=== PATIENT | female | born 1960 | race Caucasian/White ===

== ENCOUNTER 2016-12-09 07:15 | Inpatient (IN) | payer MEDICARE, MEDICAID ==
[2016-12-09] MEDS ORDERED: Naloxone 0.4 MG/ML SDV IVPUSH PRN (07:54)
[2016-12-09] MEDS: HYDROmorphone/Normal Saline 15 MG/30 ML PCA IV PRN ×2 (07:58→22:41)
[2016-12-09] MEDS ORDERED: fentaNYL 25 MCG/HR Transdermal Patch TRDERM ONE (08:15)
[2016-12-09] MEDS ORDERED: fentaNYL 25 MCG/HR Transdermal Patch TRDERM SCH (08:15)
[2016-12-09] MEDS: Dextrose 5%-Lactated Ringers 1,000 ML IV SCH ×2 (08:54→13:37)
[2016-12-09] MEDS ORDERED: ceFAZolin 2 GM in Premix Bag 1 BAG IV ONE (09:45)
[2016-12-09] MEDS ORDERED: Neostigmine Methylsulfate 1 MG/ML 5 ML Syringe ONE (10:21)
[2016-12-09] MEDS ORDERED: fentaNYL 250 MCG/5 ML SDV ONE (10:21)
[2016-12-09] MEDS ORDERED: Ondansetron 4 MG/2 ML SDV ONE (10:21)
[2016-12-09] MEDS ORDERED: Midazolam 1 MG/ML 2 ML SDV ONE (10:21)
[2016-12-09] MEDS ORDERED: Propofol 200 MG/20 ML SDV ONE (10:21)
[2016-12-09] MEDS ORDERED: Dexamethasone 4 MG/ML SDV ONE (10:21)
[2016-12-09] MEDS ORDERED: Ketamine 500 MG/5 ML MDV IV SCH (11:00)
[2016-12-09] MEDS ORDERED: fentaNYL 100 MCG/2 ML SDV ONE (12:36)
[2016-12-09] MEDS ORDERED: Meperidine PF 100 MG/ML Syringe IM ONE (12:47)
[2016-12-09] MEDS ORDERED: hydrOXYzine HCl 50 MG/ML SDV IM ONE (12:48)
[2016-12-09] MEDS ORDERED: Cyclobenzaprine 10 MG Tab PO PRN (15:08)
[2016-12-09] MEDS ORDERED: LORazepam 0.5 MG Tab PO PRN (15:09)
[2016-12-09] MEDS ORDERED: Ondansetron 4 MG/2 ML SDV IV PRN (15:12)
[2016-12-09] MEDS ORDERED: Dextrose 5%-Lactated Ringers 1,000 ML IV SCH (15:15)
[2016-12-09] MEDS ORDERED: CHECK FENTANYL PATCH DAILY TOP SCH (16:00)
[2016-12-09] MEDS: DULoxetine 30 MG Cap PO SCH (16:40)
[2016-12-09] MEDS: Pantoprazole 40 MG Vial IV SCH (16:41)
[2016-12-09] MEDS: Lisinopril 10 MG Tab PO SCH (16:41)
[2016-12-09] MEDS: Metoclopramide 10 MG/2 ML SDV IVPUSH SCH (16:41)
[2016-12-09] MEDS: Venlafaxine 37.5 MG Cap.ER PO SCH (16:41)
[2016-12-09] MEDS: oxyCODONE ER 10 MG TAB.ER PO SCH (18:29)
[2016-12-09] MEDS: ceFAZolin 2 GM in Sodium Chloride 0.9% 50 ML IV SCH (18:30)
[2016-12-09] MEDS: traZODone 50 MG Tab PO SCH (20:42)
[2016-12-09] MEDS: oxyCODONE 5 MG Tab PO PRN (22:13)
[2016-12-10] MEDS: Metoclopramide 10 MG/2 ML SDV IVPUSH SCH ×3 (02:22→15:52)
[2016-12-10] MEDS: ceFAZolin 2 GM in Sodium Chloride 0.9% 50 ML IV SCH ×2 (02:22→12:08)
[2016-12-10] MEDS: oxyCODONE ER 10 MG TAB.ER PO SCH ×2 (06:32→18:17)
[2016-12-10] MEDS: oxyCODONE 5 MG Tab PO PRN ×2 (07:40→15:19)
[2016-12-10] MEDS: Pantoprazole 40 MG Vial IV SCH (07:41)
[2016-12-10] MEDS ORDERED: Zolpidem 5 MG Tab PO PRN ×2 (08:56)
[2016-12-10] MEDS: HYDROmorphone 2 MG Tab PO PRN ×2 (11:26→19:26)
[2016-12-10] MEDS: DULoxetine 30 MG Cap PO SCH (11:27)
[2016-12-10] MEDS: Venlafaxine 37.5 MG Cap.ER PO SCH (11:27)
[2016-12-10] MEDS: Lisinopril 10 MG Tab PO SCH (11:28)
[2016-12-10] MEDS: Furosemide 40 MG Tab PO SCH (11:28)
--- NOTE | 2016-12-10 17:55 | PN ---
DATE OF SERVICE: 12/10/2016 SUBJECTIVE: Abiola is postop day 1 following a laparoscopic Dean fundoplication. She has had a lot of pain in her left upper shoulder. She continues to be on ice chips. Vital signs have been stable, but she did have a temp of 99.5. She reports her pain on the pain scale of 1 to 10 as a 10+ out of 10. REVIEW OF SYSTEMS: Remainder of review of systems negative for any pertinent positives and negatives. OBJECTIVE: GENERAL: Abiola Yin is a 56-year-old female. She is expressing pain. VITAL SIGNS: Temperature is 99.5, pulse rate is 59, respirations are 16, and blood pressure 125/68. HEENT: Negative. NECK: Supple. HEART: Regular rate and rhythm. LUNGS: Clear. ABDOMEN: Dressings dry and intact. Abdominal binder is on. EXTREMITIES: Without peripheral edema. ASSESSMENT: Laparoscopic Dean fundoplication for gastroesophageal reflux disease refractory to medical management on 12/09/2016. PLAN: 1. Clear liquid diet for breakfast and lunch. 2. Full liquid diet for dinner. 3. Dilaudid 2 mg one to two every 4 hours p.r.n. pain. 4. Discontinue VICE PRESIDENT UNDERWRITING. 5. Continue continuous pulse ox. 6. Discontinue Hunt. 7. Discontinue Flexeril. 8. The patient requested Soma which works better for her back pain as far as muscle relaxant. She has can have Soma 350 mg p.o. t.i.d. Good pulmonary toilet encouraged. 9. We will evaluate p.r.n. or in a.m. Cari Pretty PA-C /[id number]
[2016-12-10] MEDS: Dextrose 5%-Lactated Ringers 1,000 ML IV SCH (19:28)
[2016-12-10] MEDS ORDERED: Acetaminophen 1,000 MG in Premix Bag 1 BAG IV ONE (20:08)
[2016-12-10] MEDS: traZODone 50 MG Tab PO SCH (21:22)
[2016-12-11] MEDS: Metoclopramide 10 MG/2 ML SDV IVPUSH SCH (00:15)
[2016-12-11] MEDS: oxyCODONE 5 MG Tab PO PRN ×4 (01:04→22:31)
[2016-12-11] MEDS: Acetaminophen 325 MG Tab PO SCH ×4 (01:52→20:43)
[2016-12-11] MEDS: oxyCODONE ER 10 MG TAB.ER PO SCH ×2 (05:35→18:50)
[2016-12-11] MEDS: Dextrose 5%-Lactated Ringers 1,000 ML IV SCH (06:22)
--- NOTE | 2016-12-11 07:46 | PN ---
DATE OF SERVICE: 12/11/2016 SUBJECTIVE: Abiola is postop, following a laparoscopic Dean fundoplication. She had better pain relief with IV Tylenol, temp max 99.9. Oral intake 1080. Denies any difficulty swallowing. The left shoulder pain is better. She is having a lot of difficulty with her chronic back pain. REVIEW OF SYSTEMS: Remainder of review of systems negative for any pertinent positives or negatives. OBJECTIVE: General: Abiola Yin is a 56-year-old female. VITAL SIGNS: TPR is 99.9, 73, 16, blood pressure 111/55. HEENT: Negative. NECK: Supple. HEART: Regular rate and rhythm. LUNGS: Clear. ABDOMEN: Dressings dry and intact. Abdominal binder is on. EXTREMITIES: Without peripheral edema. SCDs are on. ASSESSMENT: Laparoscopic Dean fundoplication for gastroesophageal reflux disease, refractory to medical management on 12/09/2016. PLAN: 1. Dressing off, may shower. Discontinue scheduled Reglan. Good pulmonary toilet encouraged. 2. We will evaluate p.r.n. or in a.m. Cari Pretty PA-C /[id number]
[2016-12-11] MEDS: HYDROmorphone 2 MG Tab PO PRN ×4 (07:57→20:42)
[2016-12-11] MEDS: Pantoprazole 40 MG Vial IV SCH (08:16)
[2016-12-11] MEDS: DULoxetine 30 MG Cap PO SCH (08:21)
[2016-12-11] MEDS: Venlafaxine 37.5 MG Cap.ER PO SCH (08:21)
[2016-12-11] MEDS: Lisinopril 10 MG Tab PO SCH (08:53)
[2016-12-11] MEDS: Furosemide 40 MG Tab PO SCH (08:53)
[2016-12-11] MEDS ORDERED: Ondansetron 4 MG Tab.DIS PO PRN (11:24)
[2016-12-11] MEDS ORDERED: oxyCODONE ER 10 MG TAB.ER ONE (18:45)
[2016-12-11] MEDS ORDERED: Zolpidem 5 MG Tab PO PRN (20:49)
[2016-12-11] MEDS: traZODone 50 MG Tab PO SCH (22:30)
[2016-12-12] MEDS: Acetaminophen 325 MG Tab PO SCH ×2 (02:54→07:23)
[2016-12-12] MEDS: HYDROmorphone 2 MG Tab PO PRN ×2 (02:54→07:30)
[2016-12-12] MEDS: oxyCODONE ER 10 MG TAB.ER PO SCH (06:51)
[2016-12-12] MEDS ORDERED: Pantoprazole 40 MG Tab.CR PO SCH (07:30)
[2016-12-12 07:47] VITALS: BP 134/66
[2016-12-12] MEDS: DULoxetine 30 MG Cap PO SCH (09:25)
[2016-12-12] MEDS: Venlafaxine 37.5 MG Cap.ER PO SCH (09:26)
[2016-12-12] MEDS: Lisinopril 10 MG Tab PO SCH (09:27)
[2016-12-12] MEDS: Furosemide 40 MG Tab PO SCH (09:27)
[2016-12-12] MEDS ORDERED: Magnesium Hydroxide 400 MG/5 ML Susp 30 ML Cup PO ONE (10:42)
--- NOTE | 2016-12-12 11:30 | DISCH ---
ADMISSION DIAGNOSES: 1. Hiatal hernia. 2. Chronic fatigue and pain syndrome. 3. Hypothyroidism. 4. History of drug and alcohol addiction. 5. Hypertension. 6. Hyperlipidemia. 7. Depression and anxiety. 8. Insomnia. 9. Gastroesophageal reflux disease. 10.Lumbago. 11.Fibromyalgia. 12.Osteoporosis. 13.Osteoarthritis. 14.Posttraumatic stress disorder. 15.Sleep apnea. 16.Irritable bowel syndrome. 17.Small cyst, right lobe of liver. DISCHARGE DIAGNOSES: 1. Laparoscopic Dean fundoplication with repair of paraesophageal diaphragmatic hernia with mesh and excision of mediastinal lipoma and resection of lateral aspect of the left lobe of liver for large paraesophageal diaphragmatic hernia, for gastroesophageal reflux disease refractory to medical management. 2. Nodular lesion left lobe of liver and mediastinal lipoma. HISTORY: Abiola Yin is a 56-year-old female with longstanding history of GERD, refractory to medical management and a large paraesophageal diaphragmatic hernia. After preoperative evaluation and discussion of possible risks and possible complications, she wished to proceed with surgical procedure. HOSPITAL COURSE: Abiola had her surgery on 12/09/2016. She had no operative complications. She did have extreme difficulty with management of pain. Once her pain got under control, she was able to ambulate and tolerate a clear then advance to full liquid diet. Her vital signs remained stable. Her activity was adequate. Oral intake was good at 1670. She was able to be discharged to home on 12/12/2016. PHYSICAL EXAMINATION: GENERAL: Abiola Yin is a 56-year-old female. VITAL SIGNS: Height is 5 feet 3 inches. Weight is 163 pounds. TPR is 98.1, 81, 16, blood pressure 134/66. HEENT: Negative. NECK: Supple. HEART: Regular rate and rhythm. LUNGS: Clear. ABDOMEN: Incisions look good. Abdominal binder is on. EXTREMITIES: Without peripheral edema. DISPOSITION: Discharged to home. CONDITION: Stable and improving. FOLLOWUP APPOINTMENT: Cari Pretty PA-C, on 12/18/2016 at 10:15 a.m. HOME MEDICATION: 1. Tylenol 650 mg oral q.6 hours p.r.n. pain. 2. Dilaudid 2 mg 1 to 2 every 4 hours p.r.n. pain. 3. #40 milk of magnesia 30 mL, two were sent home with patient. 4. She is to resume her home medications of vitamin D3 of 1000 international units daily. 5. Cymbalta 120 mg oral daily. 6. Dexilant 30 mg oral twice daily. 7. Furosemide 40 mg oral daily. 8. Ativan 0.5 mg oral 3 times a day p.r.n. anxiety. 9. Lisinopril 10 mg oral daily. 10.Effexor 37.5 mg oral daily. 11.Vitamin E 400 mg oral daily. 12.Ambien 15 mg oral at bedtime. 13.Oxycodone ER 10 mg every 12 hours. 14.Oxycodone 10 mg every 6 hours p.r.n. pain. 15.Trazodone 300 mg at bedtime. DIET: After discharge, full liquid diet for 2 weeks. ACTIVITY: After discharge, as tolerated. No lifting greater than 10 pounds for 2 weeks[address], do not drive on pain medication. Shower bathing, may shower. Notify provider if any fever, increased pain, swelling, redness, drainage, nausea, or vomiting. Keep wound incision clean and dry. Wear abdominal binder for 2 weeks and then as tolerated. SPECIAL INSTRUCTION: Use incentive spirometer 10 times every hour while awake for 2 weeks and to write down everything you eat and drink, and bring to clinic appointments.
--- NOTE | 2016-12-15 14:59 | OR ---
DATE OF PROCEDURE: 12/09/2016 PREOPERATIVE DIAGNOSIS: Gastroesophageal reflux disease refractory to medical management. POSTOPERATIVE DIAGNOSES: 1. Large paraesophageal diaphragmatic hernia associated with gastroesophageal reflux disease refractory to medical management. 2. Mediastinal lipoma. 3. Nodular lesion, left lobe of the liver. OPERATIVE PROCEDURES: Diagnostic laparoscopy with: 1. Laparoscopic Dean fundoplication with repair of paraesophageal diaphragmatic hernia with mesh (73793). 2. Excision of mediastinal lipoma (27872). 3. Resection of lateral aspect of the left lobe of liver (41471). ANESTHESIA: General. INDICATION FOR PROCEDURE: This is a 56-year-old female, presenting with gastroesophageal reflux disease which has become refractory to medical management and has proceeded with a Dean fundoplication. Potential risks including bleeding, infection, injury to underlying viscera, problems with fundoplication such as dysphagia, gas-bloat syndrome, disorders in gastric emptying rate, as well as possibility of incomplete relief of reflux symptoms as well as remote possibility of cardiopulmonary, septic, or hemorrhagic complications leading to were all discussed, and the patient wishes to proceed. DETAILS OF PROCEDURE: The patient was taken to the operating room and after general endotracheal anesthesia was induced, she was converted to a lithotomy position and a Hunt catheter was inserted and the abdomen was then prepped and draped. At 15 cm inferior, 5 cm left of xiphoid process, transverse incision was made, and peritoneal cavity entered under direct vision with an Optiview trocar and inflated to 15 mmHg pressure with CO2. Laparoscope was then reinserted. No underlying trocar insertion site injuries were seen. Following this, 4 additional trocars were placed across the upper and mid abdomen and general exploration was undertaken. The initial finding was that of a fairly large white nodular lesion in the left lobe of the liver, located more or less at the junction of segments II and III in the midportion of the lateral aspect of the left lobe of the liver. No other abnormalities were noted within the liver and it was felt that this would be best resected by means of a wide excision. Given the use of resection of this lesion and in the event that it's neoplastic, this would probably be an adequate excision without reexploration being required, and this would result in a minimal loss of liver function given its location. The decision was made to proceed with this at the end of the fundoplication phase of the procedure. At this point, the liver was retracted anteriorly and the patient was noted to have a fairly large paraesophageal diaphragmatic hernia with prolapse of a portion of gastric fundus as well as some omentum in the plane anterior to the course of the esophagus. This was reduced at this point, the peritoneum to the right and anterior to the left of the esophagogastric junction divided and reflected downward. As one dissected behind the esophagus, a mediastinal lipoma was encountered. This was sequentially dissected free from the surrounding soft tissues and then excised and sent as a separate specimen. The attachments to the distal esophagus were then sequentially freed up with the until adequate intraabdominal esophageal length of 4 to 5 cm was established. A crural repair was then accomplished posteriorly with some 0 Ethibond sutures reinforced with PTFE pledgets, the size of the crural defect appeared to warrant a mesh-type repair. Phasix mesh was then cut so that it laid across the crural repair posteriorly and then along the sides of the esophagus. This was fixed to the diaphragmatic tissues with titanium tacking screws. Beginning this in the mid greater curvature of the stomach, the omentum was divided away from the stomach with the short gastric vessels including the highest posterior short gastric vessels until the fundus was well mobilized. Fundus was then retrieved through retroesophageal window and at that point of the procedure passed the guidewire through the esophagus and into the stomach. Over this, a 54-Bulgarian Savary dilator was placed. A 2 cm three-stitch fundoplication was then accomplished with 0 Ethibond sutures reinforced with PTFE pledgets. Each of the fundoplication sutures included a bite of the underlying esophagus. The uppermost included a bite of the right side of the diaphragm that helped keep the fundoplication in a non-slipped position. An additional stitch between the left side of fundoplication overlying diaphragm with the same stitch- pledget combination was likewise accomplished. At that point, the dilator and guidewire were removed. The patient appeared to have adequate floppiness of the fundoplication. At this point, the liver retractor was reduced once again and using sequential firings of the BRUNILDA purple and alexander loads, the liver mounting to the lateral half of the segments II and III were excised and this specimen was then placed into a specimen bag and retrieved through the somewhat now dilated left lateral subcostal trocar site. Minimal bleeding from the excision site was closed with control of electrocautery. At that point, good hemostasis was noted. No bile leaks were seen. At this point, no further problems were noted. Trocars were removed. The peritoneal cavity deflated. The fascia at the lateral trocar site in the left side was closed using 0 Vicryl stitch and the skin at each incision was closed with 4-0 Vicryl skin stitch. Dressing was applied. The patient was taken to the recovery room in satisfactory condition. Raimundo Cooley MD /[id number]
== END 2016-12-12 10:30 | disposition home or self-care (01) | DRG 328 ==
LOC: EDSTATUS 07:15 → JP.SDSSCHI 07:40 → JP.SDS 07:40 → JP.2SS 14:00
PROVIDERS: ADMIT Surgery; ATTEND Surgery
PROC: 0WBC4ZX Excision of Mediastinum, Percutaneous Endoscopic Approach, Diagnostic (ICD-10-PCS; principal; 2016-12-09)
PROC: 0DV44ZZ Restriction of Esophagogastric Junction, Percutaneous Endoscopic Approach (ICD-10-PCS; principal; 2016-12-09)
PROC: 0FB24ZX Excision of Left Lobe Liver, Percutaneous Endoscopic Approach, Diagnostic (ICD-10-PCS; principal; 2016-12-09)
PROC: 0BUR4JZ (ICD-10-PCS; principal; 2016-12-09)
PROC: 0BUS4JZ (ICD-10-PCS; principal; 2016-12-09)
DX: K21.9 Gastro-esophageal reflux disease without esophagitis (principal); M54.5 Low back pain; M54.6 Pain in thoracic spine; G89.29 Other chronic pain; K44.9 Diaphragmatic hernia without obstruction or gangrene; I10 Essential (primary) hypertension; F32.9 Major depressive disorder, single episode, unspecified; F41.9 Anxiety disorder, unspecified; M79.7 Fibromyalgia; M19.90 Unspecified osteoarthritis, unspecified site; G47.30 Sleep apnea, unspecified; D17.4 Benign lipomatous neoplasm of intrathoracic organs; G47.00 Insomnia, unspecified; Z88.8 Allergy status to other drugs, medicaments and biological substances; K76.9 Liver disease, unspecified; F10.21 Alcohol dependence, in remission; F19.21 Other psychoactive substance dependence, in remission
CPT/HCPCS: 88304; 88307; 88312; 94667; 94762; A9270-GY; C1781; C9113; J0131; J0690; J1100; J1170; J2175; J2250; J2405; J2704; J2765; J3010; J3410; J7042; J7050

== ENCOUNTER 2016-12-29 16:43 | Emergency (ER) | payer MEDICARE, MEDICAID ==
[2016-12-29] MEDS ORDERED: Sodium Chloride 0.9% 10 ML Syringe FLUSH PRN ×2 (18:43→19:04)
[2016-12-29] MEDS ORDERED: Sodium Chloride 0.9% 1,000 ML IV SCH (18:45)
--- NOTE | 2016-12-29 18:48 | EDM.PDOC ---
ED HPI GI/ABDOMINAL - General Chief Complaint: Abdominal Pain Stated Complaint: BLEEDING AND CRAMPING Time Seen by Provider: 12/29/16 18:31 Source: Reports: Patient, RN notes reviewed History Limitations: Reports: No limitations - History of Present Illness INITIAL COMMENTS - FREE TEXT/NARRATIVE: 56-year-old female presents emergency department today with complaint of generalized, pain. She has had problem with constipation and hard stool unfortunately she is now having loose watery stool with bloody diarrhea mostly dark. Recently had a Dean fundoplication approximately 2 weeks ago. Is on high doses of narcotic medication on a chronic pain contract with pain physician in [facility]. Denies any fevers nausea vomiting shortness of breath or chest pain and is still passing gas - Related Data Allergies/ADRs: Allergies Allergy/AdvReac Type Severity Reaction Status Date / Time Penicillins Allergy Rash Verified 10/08/16 13:27 Sulfa (Sulfonamide AdvReac Stomach Verified 10/08/16 13:27 Antibiotics) Upset Home Meds: Home Meds Dexlansoprazole [Dexilant] 30 mg PO BID 01/04/14 [History] Furosemide 40 mg PO DAILY 01/04/14 [History] Zolpidem [Ambien] 15 mg PO BEDTIME PRN 01/04/14 [History] traZODone HCl [Oleptro ER] 300 mg PO BEDTIME 01/04/14 [History] DULoxetine HCl [Cymbalta] 120 mg PO DAILY 04/26/16 [History] Cholecalciferol (Vitamin D3) [Cholecalciferol] 1,000 unit PO DAILY 07/17/16 [ History] Lisinopril 10 mg PO DAILY 07/17/16 [History] Vitamin E 400 mg PO DAILY 07/17/16 [History] oxyCODONE ER [OxyCONTIN] 10 mg PO Q12H 07/18/16 [History] oxyCODONE ER [OxyCONTIN] 10 mg PO Q6H PRN 07/18/16 [History] LORazepam [Ativan] 0.5 mg PO TID PRN 12/05/16 [History] Venlafaxine [Effexor XR] 37.5 mg PO DAILY 12/05/16 [History] Zolpidem [Ambien] 15 mg PO BEDTIME PRN 12/05/16 [History] Acetaminophen [Tylenol] 650 mg PO Q6H tablet 12/12/16 [Rx] HYDROmorphone [Dilaudid] 2 - 4 mg PO Q4H PRN #40 tablet 12/12/16 [Rx] Magnesium Hydroxide [Milk of Magnesia] 30 ml PO DAILY PRN #2 ml 12/12/16 [Rx] Polyethylene Glycol 3350 [MiraLAX] 17 gm PO BID 12/29/16 [History] Past Medical History Cardiovascular History: Reports: Hypertension Respiratory History: Reports: Bronchitis, recurrent Gastrointestinal History: Reports: Chronic constipation, Gastritis, Hiatal hernia Genitourinary History: Reports: Other (see below) Other Genitourinary History: vaginitis CLIENT ANALYST History: Reports: Dysfunctional uterine bleeding, Endometriosis, , Spontaneous Musculoskeletal History: Reports: Back pain, chronic, Fibromyalgia Neurological History: Reports: Migraines, Seizure Psychiatric History: Reports: Anxiety, Bipolar, Depression Hematologic History: Reports: Anemia Oncologic (Cancer) History: Reports: Other (see below) Other Oncologic History: vaginal canal - Infectious Disease History Infectious Disease History: Reports: Chicken pox, Shingles - Past Surgical History HEENT Surgical History: Reports: Oral surgery, Tonsillectomy, Other (see below) Other HEENT Surgeries/Procedures: diviated septum, tmj Cardiovascular Surgical History: Reports: None Respiratory Surgical History: Reports: None GI Surgical History: Reports: Appendectomy, Colonoscopy, EGD, Dean fundoplication Female Surgical History: Reports: Hysterectomy Neurological Surgical History: Reports: Lumbar spine, Other (see below) Other Neurological Surgeries/Procedures: fusion at l5-s1 Musculoskeletal Surgical History: Reports: Hip replacement, Knee replacement, Shoulder surgery, Other (see below) Other Musculoskeletal Surgeries/Procedures:: scoliosis; degenerative disc in back Oncologic Surgical History: Reports: None Dermatological Surgical History: Reports: Skin biopsy Social & Family History - Family History Family Medical History: Noncontributory - Tobacco Use Smoking Status *Q: Light Tobacco Smoker Years of Tobacco use: 30 Packs/Tins Daily: 1 Used Tobacco, but Quit: No Second Hand Smoke Exposure: No - Caffeine Use Caffeine Use: Reports: Coffee - Alcohol Use Days Per Week of Alcohol Use: 2 Number of Drinks Per Day: 3 Total Drinks Per Week: 6 - Recreational Drug Use Recreational Drug Use: No - Living Situation & Occupation 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 Denies: fever, chills HEENT: Reports: No symptoms Respiratory: Reports: No Symptoms Cardiovascular: Reports: No symptoms GI/Abdominal: Reports: Abdominal pain, Bloody stool, Flatus. Denies: Nausea, Vomiting : Reports: no symptoms Musculoskeletal: Reports: no symptoms Skin: Reports: no symptoms Neurological: Reports: No Symptoms ED EXAM, GI/ABD - Physical Exam Exam: See Below Exam Limited By: No limitations General Appearance: alert, WD/WN, no apparent distress Respiratory/Chest: no respiratory distress, lungs clear, normal breath sounds, no accessory muscle use Cardiovascular: regular rate, rhythm, no murmur GI/Abdominal: normal bowel sounds, soft, tenderness (Periumbilical region) Course - Vital Signs Last Recorded V/S: Last Vital Signs Temp 97.5 F 12/29/16 18:18 Pulse 69 12/29/16 18:18 Resp 16 12/29/16 18:18 BP 115/68 12/29/16 18:18 Pulse Ox 98 12/29/16 18:18 - Orders/Labs/Meds Orders: Active Orders 24 hr Category Date Time Status Enema [RC] ASDIRECTED Care 12/29/16 20:39 Active Peripheral IV Care [RC] . DIRECTED Care 12/29/16 18:44 Active Abdomen Pelvis w Cont [CT] Urgent Exams 12/29/16 18:43 Taken UA W/MICROSCOPIC [URIN] Urgent Lab 12/29/16 18:43 Uncollected Iopamidol [Isovue-300 (61%)] Med 12/29/16 19:15 Active 110 ml IV . DIRECTED Sodium Chloride 0.9% [Normal Saline] 1,000 ml Med 12/29/16 18:45 Active IV ASDIRECTED Sodium Chloride 0.9% [Saline Flush] Med 12/29/16 18:43 Active 10 ml FLUSH ASDIRECTED PRN Sodium Chloride 0.9% [Saline Flush] Med 12/29/16 19:04 Active 10 ml FLUSH ONETIME PRN Peripheral IV Insertion Adult [OM.PC] Urgent Oth 12/29/16 18:43 Ordered Medication Orders Sodium Chloride (Normal Saline) 1,000 mls @ 500 mls/hr IV ASDIRECTED OLGA Last Admin: 12/29/16 19:23 Dose: 500 mls/hr Iopamidol (Isovue-300 (61%)) 110 ml IV . DIRECTED OLGA Last Admin: 12/29/16 19:39 Dose: 150 ml Sodium Chloride (Saline Flush) 10 ml FLUSH ASDIRECTED PRN PRN Reason: Keep Vein Open Sodium Chloride (Saline Flush) 10 ml FLUSH ONETIME PRN PRN Reason: PER RADIOLOGY PROTOCOL Last Admin: 12/29/16 19:39 Dose: 10 ml Labs: Laboratory Tests 12/29/16 12/29/16 12/29/16 Range/Units 18:55 18:55 18:55 WBC 7.0 (4.5-11.0) K/uL RBC 3.81 (3.30-5.50) M/uL Hgb 12.2 (12.0-15.0) g/dL Hct 37.0 (36.0-48.0) % MCV 97 (80-98) fL MCH 32 H (27-31) pg MCHC 33 (32-36) % Plt Count 311 (150-400) K/uL Neut % (Auto) 44 (36-66) % Lymph % (Auto) 46 H (24-44) % Meade % (Auto) 6 (2-6) % Eos % (Auto) 3 (2-4) % Baso % (Auto) 1 (0-1) % Sodium 138 L (140-148) mmol/L Potassium 4.5 (3.6-5.2) mmol/L Chloride 100 (100-108) mmol/L Carbon Dioxide 33 H (21-32) mmol/L Anion Gap 9.5 (5.0-14.0) mmol/L BUN 16 (7-18) mg/dL Creatinine 0.9 (0.6-1.0) mg/dL Est Cr Clr Drug Dosing 57.74 mL/min Estimated GFR (MDRD) > 60 (>60) Glucose 85 (74-106) mg/dL Lactic Acid 0.9 (0.4-2.0) mmol/L Calcium 9.2 (8.5-10.1) mg/dL Total Bilirubin 0.2 (0.2-1.0) mg/dL AST 19 (15-37) U/L ALT 29 (12-78) U/L Alkaline Phosphatase 91 (46-116) U/L Total Protein 6.8 (6.4-8.2) g/dL Albumin 3.4 (3.4-5.0) g/dL Globulin 3.4 (2.3-3.5) g/dL Albumin/Globulin Ratio 1.0 L (1.2-2.2) Lipase 252 (73-393) U/L Meds: Medications Generic Name Dose Route Start Last Admin Trade Name Freq PRN Reason Stop Dose Admin Sodium Chloride 1,000 mls @ 500 mls/hr 12/29/16 18:45 12/29/16 19:23 Normal Saline IV 500 mls/hr ASDIRECTED OLGA Administration Iopamidol 110 ml 12/29/16 19:15 12/29/16 19:39 Isovue-300 (61%) IV 150 ml . DIRECTED OLGA Administration Sodium Chloride 10 ml 12/29/16 18:43 Saline Flush FLUSH ASDIRECTED PRN Keep Vein Open Sodium Chloride 10 ml 12/29/16 19:04 12/29/16 19:39 Saline Flush FLUSH 10 ml ONETIME PRN Administration PER RADIOLOGY PROTOCOL Discontinued Medications Generic Name Dose Route Start Last Admin Trade Name Freq PRN Reason Stop Dose Admin Hydromorphone HCl 1 mg 12/29/16 19:25 12/29/16 19:30 Dilaudid IVPUSH 12/29/16 19:26 1 mg ONETIME ONE Administration Hydromorphone HCl 1 mg 12/29/16 21:17 12/29/16 21:25 Dilaudid IVPUSH 12/29/16 21:18 1 mg ONETIME ONE Administration Sodium Chloride 73 mls @ 3 mls/sec 12/29/16 19:04 12/29/16 19:39 Normal Saline IV 12/29/16 19:05 3 mls/sec ONETIME ONE Administration Departure - Departure Time of Disposition: 21:45 Disposition: Home, Self-Care 01 Condition: good Clinical Impression: Functional constipation Forms: ED Department Discharge Additional Instructions: Continue using MiraLax, please keep your followup appointment with Dr. Cooley from general surgery consultation for blood in the stool, call or return to the emergency department worsening of symptoms - My Orders Last 24 Hours: My Active Orders 12/29/16 18:43 Abdomen Pelvis w Cont [CT] Urgent UA W/MICROSCOPIC [URIN] Urgent Sodium Chloride 0.9% [Saline Flush] 10 ml FLUSH ASDIRECTED PRN Peripheral IV Insertion Adult [OM.PC] Urgent 12/29/16 18:44 Peripheral IV Care [RC] . DIRECTED 12/29/16 18:45 Sodium Chloride 0.9% [Normal Saline] 1,000 ml IV ASDIRECTED 12/29/16 19:04 Sodium Chloride 0.9% [Saline Flush] 10 ml FLUSH ONETIME PRN 12/29/16 19:15 Iopamidol [Isovue-300 (61%)] 110 ml IV . DIRECTED 12/29/16 20:39 Enema [RC] ASDIRECTED - Assessment/Plan Last 24 Hours: My Active Orders 12/29/16 18:43 Abdomen Pelvis w Cont [CT] Urgent UA W/MICROSCOPIC [URIN] Urgent Sodium Chloride 0.9% [Saline Flush] 10 ml FLUSH ASDIRECTED PRN Peripheral IV Insertion Adult [OM.PC] Urgent 12/29/16 18:44 Peripheral IV Care [RC] . DIRECTED 12/29/16 18:45 Sodium Chloride 0.9% [Normal Saline] 1,000 ml IV ASDIRECTED 12/29/16 19:04 Sodium Chloride 0.9% [Saline Flush] 10 ml FLUSH ONETIME PRN 12/29/16 19:15 Iopamidol [Isovue-300 (61%)] 110 ml IV . DIRECTED 12/29/16 20:39 Enema [RC] ASDIRECTED Plan: Assessment Acuity = acute Site and laterality = constipation didn't patient with known history of chronic opiate use as well as recent Dean fundoplication Etiology = secondary to opiates Manifestations = none Location of injury = home Lab values = CBC within normal limits sodium low at 138 consistent hyponatremia , CT scan of the abdomen unremarkable stool guaiac card was negative for blood Plan Recommend followup with primary care in 3-5 days if not better also followup with general surgery for bloody stools Patient was in agreement with the plan all questions were answered, they were instructed to return to the emergency department or call for worsening symptoms. This note was dictated using [employer] voice recognition software please call with any questions.
[2016-12-29] MEDS ORDERED: Iopamidol 612 MG/ML 150 ML Bottle IV SCH (19:15)
[2016-12-29] MEDS ORDERED: HYDROmorphone 1 MG/ML Syringe IVPUSH ONE ×2 (19:25→21:17)
[2016-12-29 21:54] VITALS: BP 118/64
== END 2016-12-29 21:51 | disposition home or self-care (01) ==
LOC: JP.ED 16:43
DX: K59.04 Chronic idiopathic constipation (principal); F17.200 Nicotine dependence, unspecified, uncomplicated; I10 Essential (primary) hypertension; M79.7 Fibromyalgia; G89.29 Other chronic pain; M54.9 Dorsalgia, unspecified; F32.9 Major depressive disorder, single episode, unspecified; F41.9 Anxiety disorder, unspecified; D64.9 Anemia, unspecified; Z79.899 Other long term (current) drug therapy; Z96.649 Presence of unspecified artificial hip joint; Z96.659 Presence of unspecified artificial knee joint; Z88.0 Allergy status to penicillin; Z88.2 Allergy status to sulfonamides
CPT/HCPCS: 36415; 74177; 80053; 82270; 83605; 83690; 85025; 96361; 96374; 96376; 99284; J1170; J7030; J7040; J7050

== ENCOUNTER 2016-12-31 14:25 | Inpatient (IN) | payer MEDICARE, MEDICAID ==
[2016-12-31] MEDS ORDERED: Acetaminophen 650 MG Supp RECTAL PRN (15:11)
[2016-12-31] MEDS ORDERED: Acetaminophen 325 MG Tab PO PRN (15:11)
[2016-12-31] MEDS ORDERED: Dextrose 5%-Lactated Ringers 1,000 ML IV SCH (15:15)
[2016-12-31] MEDS ORDERED: LORazepam 0.5 MG Tab PO PRN (15:16)
[2016-12-31] MEDS ORDERED: Zolpidem 5 MG Tab PO PRN (15:17)
[2016-12-31] MEDS ORDERED: Bisacodyl 5 MG Tab PO ONE ×2 (16:00→20:00)
[2016-12-31] MEDS: oxyCODONE 5 MG Tab PO SCH ×2 (16:26→22:23)
[2016-12-31] MEDS ORDERED: Dicyclomine 10 MG Cap PO PRN (16:45)
[2016-12-31] MEDS ORDERED: Polyethylene Glycol 3350 Powder 238 GM Bot PO ONE (17:00)
--- NOTE | 2016-12-31 20:30 | PCM.HP ---
H&P History of Present Illness - General Date of Service: 12/31/16 Admit Problem/Dx: Admission Diagnosis/Problem Admission Diagnosis/Problem Constipation Source of Information: Patient History Limitations: Reports: No limitations - History of Present Illness Initial Comments - Free Text/Narative: Abiola was referred to the surgery dept from her PCP Lindsey Casas for severe constipation. Abiola states she had a "hot enema in the ED on Thursday night with good results but it didn't help the pain" states she has had 2 incontinent stools while sleeping otherwise hasn't had any BMS. Reports cramping in her mid abdomen on a pain scale of 1 - 10 a 9 No other associated signs and symptoms Eating and drinking without difficulty Onset of Symptoms: Reports: gradual Location: Reports: abdomen Quality: Reports: Pressure, Stabbing, Throbbing Improves with: Reports: Medication (IV Dilaudid ) Worsens with: Reports: None Context: Reports: other (anxious) Associated Symptoms: Reports: denies other symptoms Abdomen Pain Score (Numeric/FACES): 9 - Related Data Allergies/Adverse Reactions: Allergies Allergy/AdvReac Type Severity Reaction Status Date / Time Penicillins Allergy Rash Verified 10/08/16 13:27 Sulfa (Sulfonamide AdvReac Stomach Verified 10/08/16 13:27 Antibiotics) Upset Home Medications: Home Meds Dexlansoprazole [Dexilant] 30 mg PO BID 01/04/14 [History] Furosemide 40 mg PO DAILY 01/04/14 [History] Zolpidem [Ambien] 15 mg PO BEDTIME PRN 01/04/14 [History] traZODone HCl [Oleptro ER] 300 mg PO BEDTIME 01/04/14 [History] DULoxetine HCl [Cymbalta] 120 mg PO DAILY 04/26/16 [History] Cholecalciferol (Vitamin D3) [Cholecalciferol] 1,000 unit PO DAILY 07/17/16 [ History] Lisinopril 10 mg PO DAILY 07/17/16 [History] Vitamin E 400 mg PO DAILY 07/17/16 [History] oxyCODONE ER [OxyCONTIN] 10 mg PO 12 PRN 07/18/16 [History] oxyCODONE ER [OxyCONTIN] 10 mg PO Q6HR 07/18/16 [History] LORazepam [Ativan] 0.5 mg PO TID PRN 12/05/16 [History] Venlafaxine [Effexor XR] 37.5 mg PO DAILY 12/05/16 [History] Zolpidem [Ambien] 15 mg PO BEDTIME PRN 12/05/16 [History] Magnesium Hydroxide [Milk of Magnesia] 30 ml PO DAILY PRN #2 ml 12/12/16 [Rx] Polyethylene Glycol 3350 [MiraLAX] 17 gm PO BID 12/29/16 [History] Acetaminophen [Tylenol] 650 PO Q6H 12/31/16 [History] Dicyclomine [Bentyl] 10 mg PO Q6H PRN #30 cap 01/01/17 [Rx] Lubiprostone [Amitiza] 24 mcg PO BIDMEALS #60 cap 01/01/17 [Rx] Past Medical History - Past Health History Medical/Surgical History: Denies Medical/Surgical History HEENT History: Reports: None Cardiovascular History: Reports: Hypertension Respiratory History: Reports: Bronchitis, recurrent Gastrointestinal History: Reports: Chronic constipation, Gastritis, Hiatal hernia Genitourinary History: Reports: Other (see below) Other Genitourinary History: vaginitis PLASTICS SCIENTIST History: Reports: Dysfunctional uterine bleeding, Endometriosis, , Spontaneous Musculoskeletal History: Reports: Back pain, chronic, Fibromyalgia Neurological History: Reports: Migraines, Seizure Psychiatric History: Reports: Anxiety, Bipolar, Depression Hematologic History: Reports: Anemia Oncologic (Cancer) History: Reports: Other (see below) Other Oncologic History: vaginal canal, upper lip Dermatologic History: Reports: None - Infectious Disease History Infectious Disease History: Reports: Chicken pox, Shingles - Past Surgical History Head Surgeries/Procedures: Reports: None HEENT Surgical History: Reports: Oral surgery, Tonsillectomy, Other (see below) Other HEENT Surgeries/Procedures: diviated septum, tmj Cardiovascular Surgical History: Reports: None Respiratory Surgical History: Reports: None GI Surgical History: Reports: Appendectomy, Colonoscopy, EGD, Dean fundoplication Female Surgical History: Reports: Hysterectomy Neurological Surgical History: Reports: Lumbar spine, Other (see below) Other Neurological Surgeries/Procedures: fusion at l5-s1 Musculoskeletal Surgical History: Reports: Hip replacement, Knee replacement, Shoulder surgery, Other (see below) Other Musculoskeletal Surgeries/Procedures:: scoliosis; degenerative disc in back Oncologic Surgical History: Reports: None Dermatological Surgical History: Reports: Skin biopsy Social & Family History - Family History Family Medical History: Noncontributory - Tobacco Use Smoking Status *Q: Current Every Day Smoker Years of Tobacco use: 40 Packs/Tins Daily: 1 Used Tobacco, but Quit: No Second Hand Smoke Exposure: Yes - Caffeine Use Caffeine Use: Reports: Coffee Caffeine Use Comment: 2 cups of coffee per day - Alcohol Use Days Per Week of Alcohol Use: 2 Number of Drinks Per Day: 3 Total Drinks Per Week: 6 - Recreational Drug Use Recreational Drug Use: No - Living Situation & Occupation Occupation: employed (works in [employer] at local [employer]) H&P Review of Systems - Review of Systems: Review Of Systems: See Below General: Reports: no symptoms HEENT: Reports: no symptoms Pulmonary: Reports: No Symptoms Cardiovascular: Reports: no symptoms Gastrointestinal: Reports: Constipation (abdominal cramping and gas) Genitourinary: Reports: no symptoms Musculoskeletal: Reports: other (chronic pain - fibromyalgia ) Skin: Reports: no symptoms Psychiatric: Reports: other (Drug seeking behavior, depression, anxiety and bipolar) Neurological: Reports: No Symptoms Hematologic/Lymphatic: Reports: no symptoms Immunologic: Reports: no symptoms Exam - Exam Exam: See Below - Vital Signs Vital Signs: Last Vital Signs Temp 98.3 F 12/31/16 15:01 Pulse 78 12/31/16 15:01 Resp 18 12/31/16 15:01 BP 113/61 12/31/16 15:01 Pulse Ox 97 12/31/16 15:01 Weight: 148 lb - Exam Quality Assessment: DVT prophylaxis General: alert, oriented HEENT: PERRLA Neck: supple, trachea midline Lungs: Clear to auscultation, Normal respiratory effort Cardiovascular: regular rate, regular rhythm Abdomen: tenderness (minimal generalized tenderness) (Female) Exam: Deferred Rectal (Female) Exam: Deferred Back Exam: normal inspection, full range of motion Extremities: normal inspection Skin: warm, dry, intact Neurological: cranial nerves intact, reflexes equal bilateral Neuro Extensive - Mental Status: alert, oriented x3 Neuro Extensive - Motor, Sensory, Reflexes: CN II-XII intact, normal gait, normal reflexes Psychiatric: anxious (upset that she is not getting IV Dilaudid ) - Patient Data Lab Results last 24 hrs: Laboratory Results - last 24 hr 12/31/16 12/31/16 12/31/16 Range/Units 15:01 15: 15:01 WBC 8.1 (4.5-11.0) K/uL RBC 3.77 (3.30-5.50) M/uL Hgb 11.9 L (12.0-15.0) g/dL Hct 35.5 L (36.0-48.0) % MCV 94 (80-98) fL MCH 32 H (27-31) pg MCHC 34 (32-36) % Plt Count 301 (150-400) K/uL Sodium 140 (140-148) mmol/L Potassium 3.9 (3.6-5.2) mmol/L Chloride 103 (100-108) mmol/L Carbon Dioxide 23 (21-32) mmol/L Anion Gap 14.1 H (5.0-14.0) mmol/L BUN 10 (7-18) mg/dL Creatinine 0.7 (0.6-1.0) mg/dL Est Cr Clr Drug Dosing 74.23 mL/min Estimated GFR (MDRD) > 60 (>60) Glucose 83 (74-106) mg/dL Calcium 8.7 (8.5-10.1) mg/dL Phosphorus 2.8 (2.5-4.9) mg/dL Magnesium 1.7 L (1.8-2.4) mg/dL Total Bilirubin 0.3 (0.2-1.0) mg/dL AST 22 (15-37) U/L ALT 31 (12-78) U/L Alkaline Phosphatase 88 (46-116) U/L Total Protein 6.7 (6.4-8.2) g/dL Albumin 3.4 (3.4-5.0) g/dL Globulin 3.3 (2.3-3.5) g/dL Albumin/Globulin Ratio 1.0 L (1.2-2.2) Result Diagrams: 12/31/16 15:01 12/31/16 15:01 *Q Meaningful Use (ADM) - VTE *Q VTE Criteria *Q: - Stroke *Q Stroke Criteria *Q: - AMI *Q AMI Criteria *Q: Problem List Initiated/Reviewed/Updated: Yes Orders Last 24hrs: Active Orders 24 hr Category Date Time Status Patient Status [ADT] Routine ADT 12/31/16 14:35 Active Up ad [place]cl[place] [RC] ASDIRECTED Care 12/31/16 15:00 Active Vital Signs [RC] Q4H Care 12/31/16 15:01 Active Clear Liquid Diet [DIET] Diet 12/31/16 Dinner Active Abdomen 2V AP Flat Upright [CR] Routine Exams 01/01/17 04:00 Ordered Acetaminophen [Tylenol] Med 12/31/16 15:11 Active 650 mg PO Q4H PRN Acetaminophen [Tylenol] Med 12/31/16 15:11 Active 650 mg RECTAL Q4H PRN Bisacodyl [Dulcolax] Med 12/31/16 20:00 Once 10 mg PO ONETIME ONE DULoxetine [Cymbalta] Med 01/01/17 09:00 Active 120 mg PO DAILY Dextrose 5%-Lactated Ringers 1,000 ml Med 12/31/16 15:15 Active IV ASDIRECTED Dicyclomine [Bentyl] Med 12/31/16 16:45 Active 10 mg PO Q6H PRN Furosemide [Lasix] Med 01/01/17 09:00 Active 40 mg PO DAILY LORazepam [Ativan] Med 12/31/16 15:16 Active 0.5 mg PO Q8H PRN Lisinopril [Prinivil] Med 01/01/17 09:00 Active 10 mg PO DAILY Venlafaxine [Effexor XR] Med 01/01/17 09:00 Active 75 mg PO DAILY Zolpidem [Ambien] Med 12/31/16 15:17 Active 15 mg PO BEDTIME PRN oxyCODONE Med 12/31/16 16:00 Active 10 mg PO Q6H oxyCODONE ER [OxyCONTIN] Med 12/31/16 21:00 Active 20 mg PO Q12H traZODone Med 12/31/16 21:00 Active 300 mg PO BEDTIME Code Status [Resuscitation Status] Routine Resus Stat 12/31/16 14:59 Ordered Medication Orders Acetaminophen (Tylenol) 650 mg PO Q4H PRN PRN Reason: PAIN Acetaminophen (Tylenol) 650 mg RECTAL Q4H PRN PRN Reason: PAIN Bisacodyl (Dulcolax) 10 mg PO ONETIME ONE Stop: 12/31/16 20:01 Dicyclomine HCl (Bentyl) 10 mg PO Q6H PRN PRN Reason: STOMACH Duloxetine HCl (Cymbalta) 120 mg PO DAILY OLGA Furosemide (Lasix) 40 mg PO DAILY OLGA Dextrose/Lactated Ringer's (Dextrose 5%-Lactated Ringers) 1,000 mls @ 100 mls/ hr IV ASDIRECTED OLGA Lisinopril (Prinivil) 10 mg PO DAILY OLGA Lorazepam (Ativan) 0.5 mg PO Q8H PRN PRN Reason: ANXIETY Last Admin: 12/31/16 16:25 Dose: 0.5 mg Oxycodone HCl (Oxycontin) 20 mg PO Q12H OLGA Oxycodone HCl (Oxycodone) 10 mg PO Q6H OLGA Last Admin: 12/31/16 16:26 Dose: 10 mg Trazodone HCl (Trazodone) 300 mg PO BEDTIME OLGA Venlafaxine HCl (Effexor Xr) 75 mg PO DAILY OLGA Zolpidem Tartrate (Ambien) 15 mg PO BEDTIME PRN PRN Reason: KINJAL Nelson was consulted due to persistant request for IV Dilaudid He reported that her condition didn't warrant additional narcotics and it would compound her condition of constipation Cari Casas
[2016-12-31] MEDS ORDERED: traZODone 50 MG Tab PO SCH (21:00)
[2016-12-31] MEDS: oxyCODONE ER 20 MG TAB.ER PO SCH (21:24)
[2017-01-01] MEDS: oxyCODONE 5 MG Tab PO SCH (04:51)
[2017-01-01 07:02] VITALS: BP 121/63
[2017-01-01] MEDS ORDERED: Lubiprostone 24 MCG Cap PO SCH (08:00)
[2017-01-01] MEDS ORDERED: DULoxetine 30 MG Cap PO SCH (09:00)
[2017-01-01] MEDS ORDERED: Furosemide 40 MG Tab PO SCH (09:00)
[2017-01-01] MEDS ORDERED: Venlafaxine 75 MG Cap.ER PO SCH (09:00)
[2017-01-01] MEDS ORDERED: Lisinopril 10 MG Tab PO SCH (09:00)
[2017-01-01] MEDS: oxyCODONE ER 20 MG TAB.ER PO SCH (09:37)
--- NOTE | 2017-01-01 10:03 | CR ---
Abdomen 2V AP Flat Upright INDICATION: constipation FINDINGS: Mild to moderate gas in normal caliber colon. No evidence for small bowel obstruction. Pos toperative changes at the GE junction, lumbosacral spine, and right hip.
--- NOTE | 2017-01-02 08:56 | DISCH ---
ADMISSION DIAGNOSES: 1. Constipation secondary to narcotics. 2. SP Dean fundoplication. 3. Chronic pain. 4. Hypertension. 5. Bronchitis. 6. Dysfunctional uterine bleeding. 7. Chronic back pain. 8. Fibromyalgia. 9. Migraine headaches. 10.Seizures. 11.Anxiety. 12.Bipolar. 13.Depression. 14.Drug-seeking behavior. DISCHARGE DIAGNOSIS: Resolution of constipation. HISTORY: Abiola Yin is a 56-year-old female who presented to the clinic referred from her family practice provider, Chari Mcginnis, for severe constipation and abdominal pain. She had been to the ER prior to coming to the surgery department. She reported severe abdominal pain. She was given an enema in the ER on Thursday night and continued to have problems with constipation. She was admitted for observation. HOSPITAL COURSE: Abiola Yin is a 56-year-old female. She was admitted on 12/31/2016. She requested IV Dilaudid, which was declined. She was given all her normal pain medication. She was also given a colon prep, and she started having bowel movements within 3 hours. She is continuing to have bowel movements. She states she has had a total of 6, and they have been large. Her KUB this morning was negative. She is able to be discharged to home. REVIEW OF SYSTEMS: HEENT: Negative for any headache, dizziness, loss of coordination. NECK: Supple. HEART: No chest pain or shortness of breath. LUNGS: No cough. ABDOMEN: As above. Continues to have cramping. KUB was negative. : No UTI signs and symptoms. EXTREMITIES: Chronic pain. No stiffness or limited range of motion. SKIN: Without rash. NEURO: Intact. PSYCHIATRIC: Mood and affect is appropriate. Drug-seeking behavior. DISPOSITION: Discharged to home. CONDITION: Stable and improving. FOLLOWUP: 1. With LYRIC Araiza in 1 week, her family practice provider. 2. Follow up for already scheduled appointment with Cari Pretty PA-C for her 1 month followup after laparoscopic Dean fundoplication. MEDICATIONS: 1. Resume home medications with addition of Bentyl 10 mg q.6 hours p.r.n. gas and bloating. 2. Amitiza 25 mcg b.i.d. #60 and 5 refills. 3. She is to discontinue her previous medication for chronic opiate constipation. DIET: Usual diet as tolerated. Drink 8 to 10 glasses of water a day. ACTIVITY: As tolerated. Resume normal activity and driving. Do not drive while on pain medication. May shower. Notify provider if any increased pain, nausea, or vomiting.
== END 2017-01-01 10:15 | disposition home or self-care (01) | DRG 392 ==
LOC: INTOOBSV 14:25 → OBSVTOIN 14:25 → JP.MS 14:25 → UNDOADMOB 14:25 → JP.MS 14:57 → OBSVTOIN 14:57 → UNDODISOB 01-01 10:15
PROVIDERS: ADMIT Physician Assistant Medical; ATTEND Physician Assistant Medical
DX: K59.00 Constipation, unspecified (principal); I10 Essential (primary) hypertension; F41.9 Anxiety disorder, unspecified; F32.9 Major depressive disorder, single episode, unspecified; Z88.0 Allergy status to penicillin; Z88.2 Allergy status to sulfonamides; Z79.899 Other long term (current) drug therapy; Z90.710 Acquired absence of both cervix and uterus; Z90.49 Acquired absence of other specified parts of digestive tract; Z98.890 Other specified postprocedural states; Z96.649 Presence of unspecified artificial hip joint; Z96.659 Presence of unspecified artificial knee joint; F17.210 Nicotine dependence, cigarettes, uncomplicated
CPT/HCPCS: 36415; 74020 ×2; 80053; 83735; 84100; 85027; A9270 ×15; J7042

== ENCOUNTER 2017-03-08 23:39 | Inpatient (IN) | payer MEDICARE, MEDICAID ==
[2017-03-09] MEDS ORDERED: Ondansetron 4 MG/2 ML SDV IVPUSH ONE (00:11)
[2017-03-09] MEDS ORDERED: Naloxone 0.4 MG/ML SDV IVPUSH ONE (00:12)
[2017-03-09] MEDS ORDERED: Sodium Chloride 0.9% 1,000 ML IV SCH ×3 (00:15→03:39)
--- NOTE | 2017-03-09 03:26 | PCM.HP ---
H&P History of Present Illness - General Date of Service: 03/09/17 Admit Problem/Dx: Admission Diagnosis/Problem Admission Diagnosis/Problem Drug overdose Source of Information: Old Records, Provider, RN Notes Reviewed History Limitations: Reports: Altered Mental Status (Lethargic and sedated secondary to narcotic overdose) - History of Present Illness Initial Comments - Free Text/Narative: Ms. Yin is a 57-year-old woman who was admitted through the emergency department following a drug overdose and probable suicide attempt. She has a history of chronic back pain for which she takes narcotics on a daily basis. According to history obtained from her friend who is with her in the emergency department she's had significant increase in pain over the past several weeks and has become progressively more depressed. This evening she took an unknown amount of extra narcotics and was found to be unresponsive. She was brought into the emergency department for further evaluation, she did wake up somewhat after receiving IV Narcan. She is more responsive now, but does fall asleep quickly when aroused. Unable to provide significant history concerning recent symptoms or events. - Related Data Allergies/Adverse Reactions: Allergies Allergy/AdvReac Type Severity Reaction Status Date / Time Penicillins Allergy Rash Verified 03/08/17 23:59 Sulfa (Sulfonamide AdvReac Stomach Verified 03/08/17 23:59 Antibiotics) Upset Home Medications: Home Meds Dexlansoprazole [Dexilant] 30 mg PO BID 01/04/14 [History] Furosemide 40 mg PO DAILY 01/04/14 [History] traZODone HCl [Oleptro ER] 300 mg PO BEDTIME 01/04/14 [History] DULoxetine HCl [Cymbalta] 120 mg PO DAILY 04/26/16 [History] Cholecalciferol (Vitamin D3) [Cholecalciferol] 1,000 unit PO DAILY 07/17/16 [ History] Lisinopril 10 mg PO DAILY 07/17/16 [History] Vitamin E 400 mg PO DAILY 07/17/16 [History] oxyCODONE ER [OxyCONTIN] 10 mg PO Q6HR 07/18/16 [History] LORazepam [Ativan] 0.5 mg PO TID PRN 12/05/16 [History] Venlafaxine [Effexor XR] 37.5 mg PO DAILY 12/05/16 [History] Zolpidem [Ambien] 15 mg PO BEDTIME PRN 12/05/16 [History] Magnesium Hydroxide [Milk of Magnesia] 30 ml PO DAILY PRN #2 ml 12/12/16 [Rx] Polyethylene Glycol 3350 [MiraLAX] 17 gm PO BID 12/29/16 [History] Acetaminophen [Tylenol] 650 mg PO Q6H 12/31/16 [History] Dicyclomine [Bentyl] 10 mg PO Q6H PRN #30 cap 01/01/17 [Rx] Lubiprostone [Amitiza] 24 mcg PO BIDMEALS #60 cap 01/01/17 [Rx] Past Medical History - Past Health History Medical/Surgical History: Denies Medical/Surgical History HEENT History: Reports: None Cardiovascular History: Reports: Hypertension Respiratory History: Reports: Bronchitis, Recurrent Gastrointestinal History: Reports: Chronic Constipation, Gastritis, Hiatal Hernia Genitourinary History: Reports: Other (See Below) Other Genitourinary History: vaginitis 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 History: Reports: Dysfunctional Uterine Bleeding, Endometriosis, , Spontaneous Musculoskeletal History: Reports: Back Pain, Chronic, Fibromyalgia Neurological History: Reports: Migraines, Seizure Psychiatric History: Reports: Anxiety, Bipolar, Depression Hematologic History: Reports: Anemia Oncologic (Cancer) History: Reports: Other (See Below) Other Oncologic History: vaginal canal, upper lip Dermatologic History: Reports: None - Infectious Disease History Infectious Disease History: Reports: Chicken Pox, Shingles - Past Surgical History Head Surgeries/Procedures: Reports: None HEENT Surgical History: Reports: Oral Surgery, Tonsillectomy, Other (See Below) Cardiovascular Surgical History: Reports: None GI Surgical History: Reports: Appendectomy, Colonoscopy, EGD, Dean Fundoplication Neurological Surgical History: Reports: Lumbar Spine, Other (See Below) Musculoskeletal Surgical History: Reports: Hip Replacement, Knee Replacement, Shoulder Surgery, Other (See Below) Dermatological Surgical History: Reports: Skin Biopsy Social & Family History - Family History Family Medical History: Noncontributory - Tobacco Use Smoking Status *Q: Current Status Unknown Years of Tobacco use: 40 Packs/Tins Daily: 1 Used Tobacco, but Quit: No Second Hand Smoke Exposure: Yes - Caffeine Use Caffeine Use: Reports: Other Caffeine Use Comment: unable to obtain - Alcohol Use Days Per Week of Alcohol Use: 2 Number of Drinks Per Day: 3 Total Drinks Per Week: 6 - Recreational Drug Use Recreational Drug Use: No - Living Situation & Occupation Occupation: Employed H&P Review of Systems - Review of Systems: Review Of Systems: Unable To Obtain General: Reports: ROS unobtainable (Secondary to narcotics overdose and resulting sedation) Exam - Exam Exam: See Below - Vital Signs Vital Signs: Last Vital Signs Temp 97.2 F 03/09/17 01:13 Pulse 64 03/09/17 01:13 Resp 21 H 03/09/17 01:13 BP 127/80 03/09/17 01:13 Pulse Ox 99 03/09/17 01:13 Weight: 148 lb - Exam Quality Assessment: DVT Prophylaxis General: Sedated, Lethargic HEENT: Conjunctiva Clear, Hearing Intact, Mucosa Moist & Reynolds, Normal Nasal Septum, Posterior Pharynx Clear, Pupils Equal, Pupils Reactive Neck: Supple, Trachea Midline, +2 Carotid Pulse wo Bruit Lungs: Clear to Auscultation, Normal Respiratory Effort Cardiovascular: Regular Rate, Regular Rhythm, Normal S1, Normal S2. No: Irregular Rhythm, Bradycardia, Tachycardia, Systolic Murmur, Diastolic Murmur Abdomen: Normal Bowel Sounds, Soft Back Exam: Normal Inspection, Full Range of Motion, NT Extremities: 3, Normal Inspection, 10 Skin: Warm, Dry, Intact - Patient Data Lab Results Last 24 hrs: Laboratory Results - last 24 hr 03/09/17 03/09/17 03/09/17 Range/Units 00:08 00:20 00:20 WBC 5.6 (4.5-11.0) K/uL RBC 3.45 (3.30-5.50) M/uL Hgb 10.8 L (12.0-15.0) g/dL Hct 33.0 L (36.0-48.0) % MCV 96 (80-98) fL MCH 31 (27-31) pg MCHC 33 (32-36) % Plt Count 245 (150-400) K/uL Neut % (Auto) 47 (36-66) % Lymph % (Auto) 44 (24-44) % [place] % (Auto) 8 H (2-6) % Eos % (Auto) 1 L (2-4) % Baso % (Auto) 0 (0-1) % Sodium 138 L (140-148) mmol/L Potassium 3.8 (3.6-5.2) mmol/L Chloride 105 (100-108) mmol/L Carbon Dioxide 24 (21-32) mmol/L Anion Gap 12.8 (5.0-14.0) mmol/L BUN 9 (7-18) mg/dL Creatinine 0.8 (0.6-1.0) mg/dL Est Cr Clr Drug Dosing TNP Estimated GFR (MDRD) > 60 (>60) Glucose 106 (74-106) mg/dL Calcium 8.1 L (8.5-10.1) mg/dL Total Bilirubin 0.3 (0.2-1.0) mg/dL AST 22 (15-37) U/L ALT 17 (12-78) U/L Alkaline Phosphatase 65 (46-116) U/L Troponin I < 0.017 (0.000-0.056) ng/mL Total Protein 5.7 L (6.4-8.2) g/dL Albumin 3.3 L (3.4-5.0) g/dL Globulin 2.4 (2.3-3.5) g/dL Albumin/Globulin Ratio 1.4 (1.2-2.2) Urine Opiates Screen (NEGATIVE) Ur Oxycodone Screen (NEGATIVE) Urine Methadone Screen (NEGATIVE) Ur Propoxyphene Screen (NEGATIVE) Acetaminophen 1.0 L (10.0-30.0) ug/mL Ur Barbiturates Screen (NEGATIVE) Ur Tricyclics Screen (NEGATIVE) Ur Phencyclidine Scrn (NEGATIVE) Ur Amphetamine Screen (NEGATIVE) U Methamphetamines Scrn (NEGATIVE) Urine MDMA Screen (NEGATIVE) U Benzodiazepines Scrn (NEGATIVE) U Cocaine Metab Screen (NEGATIVE) U Marijuana (THC) Screen (NEGATIVE) Ethyl Alcohol mg/dL 03/09/17 03/09/17 Range/Units 00:20 01:18 WBC (4.5-11.0) K/uL RBC (3.30-5.50) M/uL Hgb (12.0-15.0) g/dL Hct (36.0-48.0) % MCV (80-98) fL MCH (27-31) pg MCHC (32-36) % Plt Count (150-400) K/uL Neut % (Auto) (36-66) % Lymph % (Auto) (24-44) % [place] % (Auto) (2-6) % Eos % (Auto) (2-4) % Baso % (Auto) (0-1) % Sodium (140-148) mmol/L Potassium (3.6-5.2) mmol/L Chloride (100-108) mmol/L Carbon Dioxide (21-32) mmol/L Anion Gap (5.0-14.0) mmol/L BUN (7-18) mg/dL Creatinine (0.6-1.0) mg/dL Est Cr Clr Drug Dosing Estimated GFR (MDRD) (>60) Glucose (74-106) mg/dL Calcium (8.5-10.1) mg/dL Total Bilirubin (0.2-1.0) mg/dL AST (15-37) U/L ALT (12-78) U/L Alkaline Phosphatase (46-116) U/L Troponin I (0.000-0.056) ng/mL Total Protein (6.4-8.2) g/dL Albumin (3.4-5.0) g/dL Globulin (2.3-3.5) g/dL Albumin/Globulin Ratio (1.2-2.2) Urine Opiates Screen Negative (NEGATIVE) Ur Oxycodone Screen Positive H (NEGATIVE) Urine Methadone Screen Negative (NEGATIVE) Ur Propoxyphene Screen Negative (NEGATIVE) Acetaminophen (10.0-30.0) ug/mL Ur Barbiturates Screen Negative (NEGATIVE) Ur Tricyclics Screen Negative (NEGATIVE) Ur Phencyclidine Scrn Negative (NEGATIVE) Ur Amphetamine Screen Negative (NEGATIVE) U Methamphetamines Scrn Negative (NEGATIVE) Urine MDMA Screen Negative (NEGATIVE) U Benzodiazepines Scrn Positive H (NEGATIVE) U Cocaine Metab Screen Negative (NEGATIVE) U Marijuana (THC) Screen Positive H (NEGATIVE) Ethyl Alcohol 60 mg/dL Result Diagrams: 03/09/17 00:08 03/09/17 00:20 *Q Meaningful Use (ADM) - VTE *Q VTE Criteria *Q: - VTE Risk Assess *Q Each Risk Factor Represents 1 Point: Age 41 - 59 years Total Score 1 Point Risk Factors: 1 Each Risk Factor Represents 2 Points: None Total Score 2 Point Risk Factors: 0 Each Risk Factor Represents 3 Points: None Total Score 3 Point Risk Factors: 0 Each Risk Factor Represents 5 Points: None Total Score 5 Point Risk Factors: 0 Venous Thromboembolism Risk Factor Score *Q: 1 - Stroke *Q Stroke Criteria *Q: - AMI *Q AMI Criteria *Q: Problem List Initiated/Reviewed/Updated: Yes Orders Last 24hrs: Active Orders 24 hr Category Date Time Status Patient Status Manage Transfer [TRANSFER] Routine ADT 03/09/17 03:01 Active Cardiac Monitoring [RC] .As Directed Care 03/09/17 03:01 Active EKG Documentation Completion [RC] ASDIRECTED Care 03/09/17 00:11 Active Hunt Catheter Insertion [Insert Urinary Catheter] [OM. Care 03/09/17 01:30 Ordered PC] Q24H Urinary Catheter Assessment [RC] ASDIRECTED Care 03/09/17 01:17 Active Chest 1V Frontal [CR] Urgent Exams 03/09/17 00:11 Taken Sodium Chloride 0.9% [Normal Saline] 1,000 ml Med 03/09/17 00:15 Active IV ASDIRECTED Sodium Chloride 0.9% [Normal Saline] 1,000 ml Med 03/09/17 02:45 Active IV ASDIRECTED Restraint Initiate Non-VIOL/Non-SD [OM.PC] Routine Oth 03/08/17 23:57 Ordered Resuscitation Status Routine Resus Stat 03/09/17 03:05 Ordered EKG 12 Lead [EK] Urgent Ther 03/09/17 00:09 Ordered Medication Orders Sodium Chloride (Normal Saline) 1,000 mls @ 500 mls/hr IV ASDIRECTED [facility] Last Admin: 03/09/17 00:21 Dose: 500 mls/hr Sodium Chloride (Normal Saline) 1,000 mls @ 125 mls/hr IV ASDIRECTED [facility] Assessment/Plan Comment:: ASSESSMENT AND PLAN NARCOTIC OVERDOSE PROBABLE SUICIDE ATTEMPT-earlier this evening the patient took an overdose of her prescription narcotics, specific amount or intent unknown. She did taken off of the medication that she was found unresponsive and required IV Narcan when she arrived in the emergency department. Current [employer] [place] Coma Scale is 13 -Admit to ICU for hemodynamic and respiratory monitoring -Suicide precautions -72 hour hold until psychiatric assessment can be obtained -Repeat Tylenol level CHRONIC BACK PAIN -Hold narcotics until she has recovered from overdose DEPRESSION -Continue current antidepressant therapy pending psychiatric evaluation HYPERTENSION -Continue outpatient medications MAINTENANCE ISSUES -DVT prophylaxis; Lovenox 40 mg subcutaneous daily -GI prophylaxis; not indicated -Hunt catheter; removal when patient is alert and oriented -Nutrition; regular diet -Nicotine dependence; 21 mg the nicotene patch CODE STATUS-FULL CODE ADMISSION STATUS-patient will be admitted to inpatient status, expect at least a 2 night hospital stay for evaluation and management of problems as outlined above. At the time of this admission I do not reasonably expected evaluation and management of this problem will require more than a 96 hour hospital stay. DISPOSITION-anticipate discharge to home after the hospital stay. PRIMARY CARE PROVIDER-Dr. Donaldo Parks
[2017-03-09] MEDS ORDERED: Ondansetron 4 MG/2 ML SDV IV PRN (03:39)
[2017-03-09] MEDS ORDERED: Sodium Chloride 0.9% 10 ML Syringe FLUSH PRN (03:39)
[2017-03-09] MEDS ORDERED: Docusate Sodium 100 MG Cap PO PRN (03:39)
--- NOTE | 2017-03-09 06:53 | EDM.PDOC ---
ED HPI GENERAL MEDICAL PROBLEM - General Chief Complaint: Drug or Alcohol Abuse Stated Complaint: [facility] Time Seen by Provider: 03/09/17 00:08 Source of Information: Reports: EMS, RN Notes Reviewed History Limitations: Reports: Altered Mental Status (Lethargic and sedated secondary to narcotic overdose) - History of Present Illness INITIAL COMMENTS - FREE TEXT/NARRATIVE: This woman arrived by EMS. The history is that she had been at work and then she had had a drink. She then went home and took some of her prescription medications and afterwards passed out. EMS was called. They found her unresponsive. An IV was established and initially she did not respond to 1 mg of Narcan however a second dose was administered and then she suddenly became awake and alert. She denied any it's of hurting herself. Later one of her friends arrived and told the nurse that lately she's been very depressed so there was some suspicion that this might have been some kind of a suicide attempt. Back Pain Score (Numeric/FACES): 5 - Related Data Allergies Allergy/AdvReac Type Severity Reaction Status Date / Time Penicillins Allergy Rash Verified 03/08/17 23:59 Sulfa (Sulfonamide AdvReac Stomach Verified 03/08/17 23:59 Antibiotics) Upset Home Meds: Home Meds Dexlansoprazole [Dexilant] 30 mg PO BID 01/04/14 [History] Furosemide 40 mg PO DAILY 01/04/14 [History] traZODone HCl [Oleptro ER] 300 mg PO BEDTIME 01/04/14 [History] DULoxetine HCl [Cymbalta] 120 mg PO DAILY 04/26/16 [History] Cholecalciferol (Vitamin D3) [Cholecalciferol] 1,000 unit PO DAILY 07/17/16 [ History] Lisinopril 10 mg PO DAILY 07/17/16 [History] Vitamin E 400 mg PO DAILY 07/17/16 [History] oxyCODONE ER [OxyCONTIN] 10 mg PO Q6HR 07/18/16 [History] LORazepam [Ativan] 0.5 mg PO TID PRN 12/05/16 [History] Venlafaxine [Effexor XR] 37.5 mg PO DAILY 12/05/16 [History] Zolpidem [Ambien] 15 mg PO BEDTIME PRN 12/05/16 [History] Magnesium Hydroxide [Milk of Magnesia] 30 ml PO DAILY PRN #2 ml 12/12/16 [Rx] Polyethylene Glycol 3350 [MiraLAX] 17 gm PO BID 12/29/16 [History] Acetaminophen [Tylenol] 650 mg PO Q6H 12/31/16 [History] Dicyclomine [Bentyl] 10 mg PO Q6H PRN #30 cap 01/01/17 [Rx] Lubiprostone [Amitiza] 24 mcg PO BIDMEALS #60 cap 01/01/17 [Rx] Past Medical History - Past Health History Medical/Surgical History: Denies Medical/Surgical History HEENT History: Reports: None Cardiovascular History: Reports: Hypertension Respiratory History: Reports: Bronchitis, Recurrent Gastrointestinal History: Reports: Chronic Constipation, Gastritis, Hiatal Hernia Genitourinary History: Reports: Other (See Below) Other Genitourinary History: vaginitis [employer] History: Reports: Dysfunctional Uterine Bleeding, Endometriosis, , Spontaneous Musculoskeletal History: Reports: Back Pain, Chronic, Fibromyalgia Neurological History: Reports: Migraines, Seizure Psychiatric History: Reports: Anxiety, Bipolar, Depression Hematologic History: Reports: Anemia Oncologic (Cancer) History: Reports: Other (See Below) Other Oncologic History: vaginal canal, upper lip Dermatologic History: Reports: None - Infectious Disease History Infectious Disease History: Reports: Chicken Pox, Shingles - Past Surgical History Head Surgeries/Procedures: Reports: None HEENT Surgical History: Reports: Oral Surgery, Tonsillectomy, Other (See Below) Cardiovascular Surgical History: Reports: None GI Surgical History: Reports: Appendectomy, Colonoscopy, EGD, Dean Fundoplication Neurological Surgical History: Reports: Lumbar Spine, Other (See Below) Musculoskeletal Surgical History: Reports: Hip Replacement, Knee Replacement, Shoulder Surgery, Other (See Below) Dermatological Surgical History: Reports: Skin Biopsy Social & Family History - Family History Family Medical History: Noncontributory - Tobacco Use Smoking Status *Q: Current Every Day Smoker Years of Tobacco use: 40 Packs/Tins Daily: 1 Used Tobacco, but Quit: No Second Hand Smoke Exposure: Yes - Caffeine Use Caffeine Use: Reports: Other Caffeine Use Comment: unable to obtain - Alcohol Use Days Per Week of Alcohol Use: 5 Number of Drinks Per Day: 2 Total Drinks Per Week: 10 - Recreational Drug Use Recreational Drug Use: No - Living Situation & Occupation Occupation: Employed ED ROS GENERAL - Review of Systems Review Of Systems: Unable To Obtain - Physical Exam Exam: See Below Exam Limited By: Altered Mental Status General Appearance: Lethargic (At times this patient seems to be nearly obtunded other times she wakes up and begins thrashing about. She is in 4 point restraints but at times sits up in bed and then shouts a few obscenities and then lies back down as if asleep.) Eye Exam: Right Eye: Abnormal Pupil (Pupils are about 3 cm and sluggish. ) Ears: Normal External Exam Nose: Normal Inspection Throat/Mouth: Normal Oropharynx Head Exam: Atraumatic Neck: Normal Inspection Respiratory/Chest: Lungs Clear Cardiovascular: Normal Peripheral Pulses, Regular Rate, Rhythm, No Murmur GI/Abdominal: Soft Neuro Exam (Abbreviated): CN II-XII Intact (In the moments when she was awake her cranial nerves all appear to be normal.), No Motor/Sensory Deficits (She moved all extremities normally) Extremities: Normal Inspection Psychiatric: Other (CC neuro exam) Skin Exam: Warm, Dry Course - Vital Signs Last Recorded V/S: Last Vital Signs Temp 36.9 C 03/09/17 03:39 Pulse 64 03/09/17 01:13 Resp 16 03/09/17 06:00 BP 87/47 L 03/09/17 06:00 Pulse Ox 96 03/09/17 06:00 - Orders/Labs/Meds Orders: Active Orders 24 hr Category Date Time Status EKG Documentation Completion [RC] ASDIRECTED Care 03/09/17 00:11 Inactive Chest 1V Frontal [CR] Urgent Exams 03/09/17 00:11 Taken EKG 12 Lead [EK] Urgent Ther 03/09/17 00:09 Stop Req Medication Orders Docusate Sodium (Colace) 100 mg PO BID PRN PRN Reason: Constipation Duloxetine HCl (Cymbalta) 120 mg PO DAILY [facility] Enoxaparin Sodium (Lovenox) 40 mg SUBCUT DAILY [facility] Furosemide (Lasix) 40 mg PO DAILY [facility] Sodium Chloride (Normal Saline) 1,000 mls @ 125 mls/hr IV ASDIRECTED [facility] Lisinopril (Prinivil) 10 mg PO DAILY [facility] Lubiprostone (Amitiza) 24 mcg PO BIDMEALS [facility] Nicotine (Habitrol) 21 mg TRDERM DAILY [facility] Ondansetron HCl (Zofran) 4 mg IV Q4H PRN PRN Reason: Nausea/Vomiting Pantoprazole Sodium (Protonix) 40 mg PO BIDAC [facility] Polyethylene Glycol (Miralax) 17 gm PO BID [facility] Sodium Chloride (Saline Flush) 10 ml FLUSH ASDIRECTED PRN PRN Reason: Keep Vein Open Venlafaxine HCl (Effexor Xr) 37.5 mg PO DAILY [facility] Labs: Laboratory Tests 03/09/17 03/09/17 03/09/17 Range/Units 00:08 00:20 00:20 WBC 5.6 (4.5-11.0) K/uL RBC 3.45 (3.30-5.50) M/uL Hgb 10.8 L (12.0-15.0) g/dL Hct 33.0 L (36.0-48.0) % MCV 96 (80-98) fL MCH 31 (27-31) pg MCHC 33 (32-36) % Plt Count 245 (150-400) K/uL Neut % (Auto) 47 (36-66) % Lymph % (Auto) 44 (24-44) % [place] % (Auto) 8 H (2-6) % Eos % (Auto) 1 L (2-4) % Baso % (Auto) 0 (0-1) % Sodium 138 L (140-148) mmol/L Potassium 3.8 (3.6-5.2) mmol/L Chloride 105 (100-108) mmol/L Carbon Dioxide 24 (21-32) mmol/L Anion Gap 12.8 (5.0-14.0) mmol/L BUN 9 (7-18) mg/dL Creatinine 0.8 (0.6-1.0) mg/dL Est Cr Clr Drug Dosing TNP Estimated GFR (MDRD) > 60 (>60) Glucose 106 (74-106) mg/dL Calcium 8.1 L (8.5-10.1) mg/dL Total Bilirubin 0.3 (0.2-1.0) mg/dL AST 22 (15-37) U/L ALT 17 (12-78) U/L Alkaline Phosphatase 65 (46-116) U/L Troponin I < 0.017 (0.000-0.056) ng/mL Total Protein 5.7 L (6.4-8.2) g/dL Albumin 3.3 L (3.4-5.0) g/dL Globulin 2.4 (2.3-3.5) g/dL Albumin/Globulin Ratio 1.4 (1.2-2.2) Urine Opiates Screen (NEGATIVE) Ur Oxycodone Screen (NEGATIVE) Urine Methadone Screen (NEGATIVE) Ur Propoxyphene Screen (NEGATIVE) Acetaminophen 1.0 L (10.0-30.0) ug/mL Ur Barbiturates Screen (NEGATIVE) Ur Tricyclics Screen (NEGATIVE) Ur Phencyclidine Scrn (NEGATIVE) Ur Amphetamine Screen (NEGATIVE) U Methamphetamines Scrn (NEGATIVE) Urine MDMA Screen (NEGATIVE) U Benzodiazepines Scrn (NEGATIVE) U Cocaine Metab Screen (NEGATIVE) U Marijuana (THC) Screen (NEGATIVE) Ethyl Alcohol mg/dL 03/09/17 03/09/17 Range/Units 00:20 01:18 WBC (4.5-11.0) K/uL RBC (3.30-5.50) M/uL Hgb (12.0-15.0) g/dL Hct (36.0-48.0) % MCV (80-98) fL MCH (27-31) pg MCHC (32-36) % Plt Count (150-400) K/uL Neut % (Auto) (36-66) % Lymph % (Auto) (24-44) % [place] % (Auto) (2-6) % Eos % (Auto) (2-4) % Baso % (Auto) (0-1) % Sodium (140-148) mmol/L Potassium (3.6-5.2) mmol/L Chloride (100-108) mmol/L Carbon Dioxide (21-32) mmol/L Anion Gap (5.0-14.0) mmol/L BUN (7-18) mg/dL Creatinine (0.6-1.0) mg/dL Est Cr Clr Drug Dosing Estimated GFR (MDRD) (>60) Glucose (74-106) mg/dL Calcium (8.5-10.1) mg/dL Total Bilirubin (0.2-1.0) mg/dL AST (15-37) U/L ALT (12-78) U/L Alkaline Phosphatase (46-116) U/L Troponin I (0.000-0.056) ng/mL Total Protein (6.4-8.2) g/dL Albumin (3.4-5.0) g/dL Globulin (2.3-3.5) g/dL Albumin/Globulin Ratio (1.2-2.2) Urine Opiates Screen Negative (NEGATIVE) Ur Oxycodone Screen Positive H (NEGATIVE) Urine Methadone Screen Negative (NEGATIVE) Ur Propoxyphene Screen Negative (NEGATIVE) Acetaminophen (10.0-30.0) ug/mL Ur Barbiturates Screen Negative (NEGATIVE) Ur Tricyclics Screen Negative (NEGATIVE) Ur Phencyclidine Scrn Negative (NEGATIVE) Ur Amphetamine Screen Negative (NEGATIVE) U Methamphetamines Scrn Negative (NEGATIVE) Urine MDMA Screen Negative (NEGATIVE) U Benzodiazepines Scrn Positive H (NEGATIVE) U Cocaine Metab Screen Negative (NEGATIVE) U Marijuana (THC) Screen Positive H (NEGATIVE) Ethyl Alcohol 60 mg/dL Meds: Medications Generic Name Dose Route Start Last Admin Trade Name Freq PRN Reason Stop Dose Admin Docusate Sodium 100 mg 03/09/17 03:39 Colace PO BID PRN Constipation Duloxetine HCl 120 mg 03/09/17 09:00 Cymbalta PO DAILY [facility] Enoxaparin Sodium 40 mg 03/09/17 09:00 Lovenox SUBCUT DAILY [facility] Furosemide 40 mg 03/09/17 09:00 Lasix PO DAILY [facility] Sodium Chloride 1,000 mls @ 125 mls/hr 03/09/17 03:39 Normal Saline IV ASDIRECTED [facility] Lisinopril 10 mg 03/09/17 09:00 Prinivil PO DAILY [facility] Lubiprostone 24 mcg 03/09/17 08:00 Amitiza PO BIDMEALS [facility] Nicotine 21 mg 03/09/17 09:00 Habitrol TRDERM DAILY [facility] Ondansetron HCl 4 mg 03/09/17 03:39 Zofran IV Q4H PRN Nausea/Vomiting Pantoprazole Sodium 40 mg 03/09/17 07:30 Protonix PO BIDAC [facility] Polyethylene Glycol 17 gm 03/09/17 09:00 Miralax PO BID [facility] Sodium Chloride 10 ml 03/09/17 03:39 Saline Flush FLUSH ASDIRECTED PRN Keep Vein Open Venlafaxine HCl 37.5 mg 03/09/17 09:00 Effexor Xr PO DAILY [facility] Discontinued Medications Generic Name Dose Route Start Last Admin Trade Name Dl PRN Reason Stop Dose Admin Sodium Chloride 1,000 mls @ 500 mls/hr 03/09/17 00:15 03/09/17 00:21 Normal Saline IV 500 mls/hr ASDIRECTED [facility] Administration Sodium Chloride 1,000 mls @ 125 mls/hr 03/09/17 02:45 03/09/17 03:28 Normal Saline IV 125 mls/hr ASDIRECTED [facility] Administration Naloxone HCl 1 mg 03/09/17 00:12 03/09/17 00:27 Narcan IVPUSH 03/09/17 00:13 1 mg ONETIME ONE Administration Ondansetron HCl 4 mg 03/09/17 00:11 03/09/17 00:23 Zofran IVPUSH 03/09/17 00:12 4 mg ONETIME ONE Administration - Re-Assessments/Exams Free Text/Narrative Re-Assessment/Exam: 03/09/17 06:52 EKG showed sinus rhythm no evidence of any ischemia. EKG is not present at the time of this dictation. Free Text/Narrative Re-Assessment/Exam: 03/09/17 06:52 This patient was observed here in the ER. All labs were reviewed. She was continued to be sedated. She was given 1 mg of Narcan at one point which didn't seem to have any effect on her she also received Zofran [address] Medrano was consulted and this patient will be admitted to the ICU for further observation. Dr. Portillo and placed her on 72 hour hold. Departure - Departure Time of Disposition: 06:53 Disposition: Admitted As Inpatient 66 Clinical Impression: Opioid overdose - Discharge Information - My Orders Last 24 Hours: My Active Orders 03/09/17 00:09 EKG 12 Lead [EK] Urgent 03/09/17 00:11 EKG Documentation Completion [RC] ASDIRECTED Chest 1V Frontal [CR] Urgent - Assessment/Plan Last 24 Hours: My Active Orders 03/09/17 00:09 EKG 12 Lead [EK] Urgent 03/09/17 00:11 EKG Documentation Completion [RC] ASDIRECTED Chest 1V Frontal [CR] Urgent
[2017-03-09] MEDS: Pantoprazole 40 MG Tab.CR PO SCH ×2 (08:21→16:36)
[2017-03-09] MEDS: Lubiprostone 24 MCG Cap PO SCH ×2 (08:21→16:36)
[2017-03-09] MEDS ORDERED: Enoxaparin 40 MG/0.4 ML Syringe SUBCUT SCH (09:00)
[2017-03-09] MEDS ORDERED: DULoxetine 30 MG Cap PO SCH (09:00)
[2017-03-09] MEDS ORDERED: Polyethylene Glycol 3350 Powder 17 GM Packet PO SCH (09:00)
[2017-03-09] MEDS ORDERED: Nicotine 21 MG/24 Hr Patch TRDERM SCH (09:00)
[2017-03-09] MEDS ORDERED: Venlafaxine 37.5 MG Cap.ER PO SCH (09:00)
[2017-03-09] MEDS ORDERED: Furosemide 40 MG Tab PO SCH (09:00)
[2017-03-09] MEDS ORDERED: Lisinopril 10 MG Tab PO SCH (09:00)
--- NOTE | 2017-03-09 09:03 | CR ---
Chest 1V Frontal HISTORY: pain COMPARISON: 03/12/2015 FINDINGS: Portable chest, 0032 hours. Lungs appear clear and normally aerated. Cardiomediastinal silhouette is within normal limits. No va scular redistribution or pleural fluid can be seen. Thoracic scoliosis convex to the right is redemo nstrated. IMPRESSION: No acute chest abnormality or significant interval change is identified.
[2017-03-09] MEDS ORDERED: oxyCODONE 5 MG Tab PO PRN (13:53)
[2017-03-09] MEDS ORDERED: oxyCODONE ER 20 MG TAB.ER PO SCH (14:00)
[2017-03-09 16:04] VITALS: BP 125/74
--- NOTE | 2017-03-09 17:21 | PCM.PN ---
- General Info Date of Service: 03/09/17 Admission Dx/Problem (Free Text): Olivia was admitted early this morning after having a unconscious episode at home. She's been having difficult time with pain for a number of years with pain in her back and she is on narcotics oxycodone 10 mg every 6 hours and OxyContin 20 mg twice a day. 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 She started to take her blood pressure and she felt something was wrong and she collapsed falling forward. A friend was there with her and she called the ambulance and was brought into the emergency room. At this point she denies taking an overdose of medication. Her drug screen came out positive for marijuana and she says she does not use it on her friend who lives in the house does smoke it and she has been breathing it secondarily. Functional Status: Reports: pain controlled - Review of Systems General: Reports: Weakness HEENT: Reports: no symptoms Pulmonary: Reports: no symptoms Cardiovascular: Reports: No Symptoms Gastrointestinal: Reports: No symptoms Genitourinary: Reports: no symptoms Musculoskeletal: Reports: back pain Skin: Reports: no symptoms Neurological: Reports: No Symptoms Psychiatric: Reports: anxiety - Patient Data Vitals - most recent: Last Vital Signs Temp 98.8 F 03/09/17 14:00 Pulse 64 03/09/17 01:13 Resp 16 03/09/17 14:00 BP 125/74 03/09/17 14:00 Pulse Ox 97 03/09/17 14:00 Weight - most recent: 155 lb 0.006 oz I&O - last 24 hours: Intake & Output 03/09/17 03/09/17 03/09/17 06:59 14:59 22:59 Intake Total 248 Output Total 850 1600 Balance -602 -1600 Med Orders - Current: Current Medications Docusate Sodium (Colace) 100 mg PO BID PRN PRN Reason: Constipation Duloxetine HCl (Cymbalta) 120 mg PO DAILY [facility] Last Admin: 03/09/17 08:23 Dose: 120 mg Enoxaparin Sodium (Lovenox) 40 mg SUBCUT DAILY [facility] Last Admin: 03/09/17 08:23 Dose: 40 mg Furosemide (Lasix) 40 mg PO DAILY [facility] Last Admin: 03/09/17 08:22 Dose: 40 mg Sodium Chloride (Normal Saline) 1,000 mls @ 125 mls/hr IV ASDIRECTED [facility] Lisinopril (Prinivil) 10 mg PO DAILY [facility] Last Admin: 03/09/17 09:00 Dose: Not Given Lubiprostone (Amitiza) 24 mcg PO BIDMEALS [facility] Last Admin: 03/09/17 16:36 Dose: 24 mcg Nicotine (Habitrol) 21 mg TRDERM DAILY [facility] Last Admin: 03/09/17 08:23 Dose: Not Given Ondansetron HCl (Zofran) 4 mg IV Q4H PRN PRN Reason: Nausea/Vomiting Oxycodone HCl (Oxycontin) 20 mg PO Q12H [facility] Last Admin: 03/09/17 14:20 Dose: 20 mg Oxycodone HCl (Oxycodone) 10 mg PO Q6H PRN PRN Reason: Pain Last Admin: 03/09/17 14:21 Dose: 10 mg Pantoprazole Sodium (Protonix) 40 mg PO BIDAC [facility] Last Admin: 03/09/17 16:36 Dose: 40 mg Polyethylene Glycol (Miralax) 17 gm PO BID [facility] Last Admin: 03/09/17 08:22 Dose: 17 gm Sodium Chloride (Saline Flush) 10 ml FLUSH ASDIRECTED PRN PRN Reason: Keep Vein Open Venlafaxine HCl (Effexor Xr) 37.5 mg PO DAILY [facility] Last Admin: 03/09/17 08:21 Dose: 37.5 mg Discontinued Medications Sodium Chloride (Normal Saline) 1,000 mls @ 500 mls/hr IV ASDIRECTED [facility] Last Admin: 03/09/17 00:21 Dose: 500 mls/hr Sodium Chloride (Normal Saline) 1,000 mls @ 125 mls/hr IV ASDIRECTED [facility] Last Admin: 03/09/17 03:28 Dose: 125 mls/hr Naloxone HCl (Narcan) 1 mg IVPUSH ONETIME ONE Stop: 03/09/17 00:13 Last Admin: 03/09/17 00:27 Dose: 1 mg Ondansetron HCl (Zofran) 4 mg IVPUSH ONETIME ONE Stop: 03/09/17 00:12 Last Admin: 03/09/17 00:23 Dose: 4 mg - Exam General: alert, oriented HEENT: Pupils equal, Pupils reactive, EOMI, Mucous membr. moist/pink Neck: supple Lungs: Clear to auscultation, Normal respiratory effort Cardiovascular: Regular Rate, Regular Rhythm Abdomen: bowel sounds present, soft, no tenderness, no distension Back Exam: Vertebral Tenderness Extremities: no edema Peripheral Pulses: 1+: Radial (L), Radial (R) Skin: warm Neurological: reflexes equal bilateral Psy/Mental Status: alert, normal affect, anxious - Problem List Review Problem List Initiated/Reviewed/Updated: Yes - My Orders Last 24 Hours: My Active Orders 03/09/17 13:53 oxyCODONE 10 mg PO Q6H PRN 03/09/17 14:00 oxyCODONE ER [OxyCONTIN] 20 mg PO Q12H - Plan Plan:: Assessment/plan: #1. Chronic back pain. She is on a lot of medication will continue with oxycodone and plan to discharge her home. She is to follow with her other doctors for her spine problem. He also has an appointment to see a physician who has been watching her abdominal pain. #2. Depression. This is a chronic condition. We'll continue with her same medication. #3. Bipolar disorder. Continue with the same medication. #4. Degenerative joint disease continue with the same medication. #5. Anxiety. This is a chronic condition. #6. Scoliosis. His major problem for her back pain which will eventually need more surgical treatment. #7. Hypertension. Her blood pressure is good control. #8. Constipation. Continue with medication. #9. Nicotinic addiction. She is encouraged to stop smoking. #10. Obesity. She should change her diet and increase activity as possible. We'll discharge home today.
--- NOTE | 2017-03-09 17:36 | PCM.DCSUM1 ---
Discharge Summary - Hospital Course Brief History: Olivia was admitted early this morning after having a unconscious episode at home. She's been having difficult time with pain for a number of years with pain in her back and she is on narcotics oxycodone 10 mg every 6 hours and OxyContin 20 mg twice a day. 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 She started to take her blood pressure and she felt something was wrong and she collapsed falling forward. A friend was there with her and she called the ambulance and was brought into the emergency room. At this point she denies taking an overdose of medication. Her drug screen came out positive for marijuana and she says she does not use it on her friend who lives in the house does smoke it and she has been breathing it secondarily. - Discharge Data Discharge Date: 03/09/17 Discharge Disposition: Home, Self-Care 01 Condition: Undetermined - Patient Summary/Data Consults: Consultations 03/09/17 03:39 Consult to Physician [CONS] Routine Consulting Provider: Benjamin Kelly Sr Courtesy Call Completed to Consulting Physician: Yes Reason for Consult: Drug overdose, prob. suicide attempt, please assume care in a.m. Hospital Course: She had an uneventful recovery in the hospital. She was given Narcan on the way in by ambulance. At the time and I evaluated her she was alert and orientated. She refused any knowledge of taking extra medication and refuses any thoughts of suicide. She also stated a cracker that she was not using marijuana but her friend who lives in the same house was smoking marijuana. Her drug screen came out positive for marijuana and opiates and benzos. She usually medically stable time of discharge and vitals were unremarkable. - Patient Instructions Diet: Heart Healthy Diet Activity: As Tolerated - Discharge Plan Home Medications: Home Meds Dexlansoprazole [Dexilant] 30 mg PO BID 01/04/14 [History] Furosemide 40 mg PO DAILY 01/04/14 [History] traZODone HCl [Oleptro ER] 300 mg PO BEDTIME 01/04/14 [History] DULoxetine HCl [Cymbalta] 120 mg PO DAILY 04/26/16 [History] Cholecalciferol (Vitamin D3) [Cholecalciferol] 1,000 unit PO DAILY 07/17/16 [ History] Lisinopril 10 mg PO DAILY 07/17/16 [History] Vitamin E 400 mg PO DAILY 07/17/16 [History] oxyCODONE ER [OxyCONTIN] 10 mg PO Q6HR 07/18/16 [History] LORazepam [Ativan] 0.5 mg PO TID PRN 12/05/16 [History] Venlafaxine [Effexor XR] 37.5 mg PO DAILY 12/05/16 [History] Zolpidem [Ambien] 15 mg PO BEDTIME PRN 12/05/16 [History] Magnesium Hydroxide [Milk of Magnesia] 30 ml PO DAILY PRN #2 ml 12/12/16 [Rx] Polyethylene Glycol 3350 [MiraLAX] 17 gm PO BID 12/29/16 [History] Acetaminophen [Tylenol] 650 mg PO Q6H 12/31/16 [History] Dicyclomine [Bentyl] 10 mg PO Q6H PRN #30 cap 01/01/17 [Rx] Lubiprostone [Amitiza] 24 mcg PO BIDMEALS #60 cap 01/01/17 [Rx] Forms: ED Department Discharge Referrals: Chari Mcginnis PA [Primary Care Provider] - - Review of Systems General: Reports: No Symptoms HEENT: Reports: no symptoms Pulmonary: Reports: no symptoms Cardiovascular: Reports: No Symptoms Gastrointestinal: Reports: No symptoms Genitourinary: Reports: no symptoms Musculoskeletal: Reports: no symptoms Skin: Reports: no symptoms Neurological: Reports: No Symptoms Psychiatric: Reports: no symptoms - Patient Data Vitals - Most Recent: Last Vital Signs Temp 98.8 F 03/09/17 14:00 Pulse 64 03/09/17 01:13 Resp 16 03/09/17 14:00 BP 125/74 03/09/17 14:00 Pulse Ox 97 03/09/17 14:00 Weight - Most Recent: 155 lb 0.006 oz I&O - Last 24 hours: Intake & Output 03/09/17 03/09/17 03/09/17 06:59 14:59 22:59 Intake Total 248 Output Total 850 1600 Balance -602 -1600 Med Orders - Current: Current Medications Docusate Sodium (Colace) 100 mg PO BID PRN PRN Reason: Constipation Duloxetine HCl (Cymbalta) 120 mg PO DAILY [facility] Last Admin: 03/09/17 08:23 Dose: 120 mg Enoxaparin Sodium (Lovenox) 40 mg SUBCUT DAILY [facility] Last Admin: 03/09/17 08:23 Dose: 40 mg Furosemide (Lasix) 40 mg PO DAILY [facility] Last Admin: 03/09/17 08:22 Dose: 40 mg Sodium Chloride (Normal Saline) 1,000 mls @ 125 mls/hr IV ASDIRECTED [facility] Lisinopril (Prinivil) 10 mg PO DAILY [facility] Last Admin: 03/09/17 09:00 Dose: Not Given Lubiprostone (Amitiza) 24 mcg PO BIDMEALS [facility] Last Admin: 03/09/17 16:36 Dose: 24 mcg Nicotine (Habitrol) 21 mg TRDERM DAILY [facility] Last Admin: 03/09/17 08:23 Dose: Not Given Ondansetron HCl (Zofran) 4 mg IV Q4H PRN PRN Reason: Nausea/Vomiting Oxycodone HCl (Oxycontin) 20 mg PO Q12H [facility] Last Admin: 03/09/17 14:20 Dose: 20 mg Oxycodone HCl (Oxycodone) 10 mg PO Q6H PRN PRN Reason: Pain Last Admin: 03/09/17 14:21 Dose: 10 mg Pantoprazole Sodium (Protonix) 40 mg PO BIDAC [facility] Last Admin: 03/09/17 16:36 Dose: 40 mg Polyethylene Glycol (Miralax) 17 gm PO BID [facility] Last Admin: 03/09/17 08:22 Dose: 17 gm Sodium Chloride (Saline Flush) 10 ml FLUSH ASDIRECTED PRN PRN Reason: Keep Vein Open Venlafaxine HCl (Effexor Xr) 37.5 mg PO DAILY [facility] Last Admin: 03/09/17 08:21 Dose: 37.5 mg Discontinued Medications Sodium Chloride (Normal Saline) 1,000 mls @ 500 mls/hr IV ASDIRECTED [facility] Last Admin: 03/09/17 00:21 Dose: 500 mls/hr Sodium Chloride (Normal Saline) 1,000 mls @ 125 mls/hr IV ASDIRECTED [facility] Last Admin: 03/09/17 03:28 Dose: 125 mls/hr Naloxone HCl (Narcan) 1 mg IVPUSH ONETIME ONE Stop: 03/09/17 00:13 Last Admin: 03/09/17 00:27 Dose: 1 mg Ondansetron HCl (Zofran) 4 mg IVPUSH ONETIME ONE Stop: 03/09/17 00:12 Last Admin: 03/09/17 00:23 Dose: 4 mg - Exam General: Reports: alert, oriented HEENT: Reports: Pupils equal, Pupils reactive, EOMI, Mucous membr. moist/pink Neck: Reports: supple Lungs: Reports: Clear to auscultation, Normal respiratory effort Cardiovascular: Reports: Regular Rate, Regular Rhythm Abdomen: Reports: bowel sounds present, soft, no tenderness, no distension Back Exam: Reports: Normal Inspection, Full Range of Motion Extremities: Reports: no edema, normal pulses Skin: Reports: warm, dry, intact Neurological: Reports: no new focal deficit Psy/Mental Status: Reports: alert, normal affect, normal mood *Q Meaningful Use (DIS) - VTE *Q VTE Criteria *Q: - Stroke *Q Stroke Criteria *Q: - AMI *Q AMI Criteria *Q:
== END 2017-03-09 18:04 | disposition home or self-care (01) | DRG 918 ==
LOC: JP.ED 23:39 → JP.ICU 03-09 03:01
PROVIDERS: ADMIT Hospitalist; ATTEND Internal Medicine
DX: T40.2X1A Poisoning by other opioids, accidental (unintentional), initial encounter (principal); F19.20 Other psychoactive substance dependence, uncomplicated; F11.20 Opioid dependence, uncomplicated; Y92.009 Unspecified place in unspecified non-institutional (private) residence as the place of occurrence of the external cause; R41.82 Altered mental status, unspecified; I10 Essential (primary) hypertension; F11.90 Opioid use, unspecified, uncomplicated; F12.90 Cannabis use, unspecified, uncomplicated; M54.9 Dorsalgia, unspecified; M41.9 Scoliosis, unspecified; G89.29 Other chronic pain; F41.9 Anxiety disorder, unspecified; F17.210 Nicotine dependence, cigarettes, uncomplicated; K44.9 Diaphragmatic hernia without obstruction or gangrene; K59.09 Other constipation; F31.9 Bipolar disorder, unspecified; Z72.89 Other problems related to lifestyle; Y90.3 Blood alcohol level of 60-79 mg/100 ml; Z96.649 Presence of unspecified artificial hip joint; Z96.659 Presence of unspecified artificial knee joint; Z85.819 Personal history of malignant neoplasm of unspecified site of lip, oral cavity, and pharynx; Z85.89 Personal history of malignant neoplasm of other organs and systems; E66.9 Obesity, unspecified; M19.90 Unspecified osteoarthritis, unspecified site; Z88.0 Allergy status to penicillin; Z88.2 Allergy status to sulfonamides
CPT/HCPCS: 36415; 51702; 71010 ×2; 80053; 80305; 84484; 85025; 96361; 96374; 96375; 99285; G0480 ×2; J2310; J2405; J7040; A9270-GY; J1650

== ENCOUNTER 2018-03-17 20:24 | Emergency (ER) | payer MEDICARE, MEDICAID ==
--- NOTE | 2018-03-17 22:23 | EDM.PDOC ---
ED HPI GENERAL MEDICAL PROBLEM - General Chief Complaint: Headache Stated Complaint: HEADACHE FOR SEVERAL DAYS Time Seen by Provider: 03/17/18 21:30 Source of Information: Reports: Patient, Old Records, RN Notes Reviewed History Limitations: Reports: No Limitations - History of Present Illness INITIAL COMMENTS - FREE TEXT/NARRATIVE: Drove herself here Chief complaint Headache History of present illness 58-year-old female with history of chronic back pain over 30 years for which she has been undergoing treatment On February 22 she had an epidural/facet injection at [place]. She had some immediate release of pain in the area of the injection. When driving back, however she started developing back pain above the injection site and up into the neck and then started developing a headache. Since then the headache is been very persistent every day so she with nausea but no vomiting because she's had previous Dean surgery It's constant steady pressure tends to get worse over the day, not throbbing. Associated with photophobia and nausea. Despite the headache she's managed to sleep, she does take medication at night to sleep Headache is not positional. No fever or chills No recent cough or cold symptoms She did come to emergency last night but decided not to be seen because the waiting time was so long. She went to her primary care's event, did get an injection of ketorolac and cortisone which may have helped her back and headache a bit. Also since February 22 she reports diarrhea daily, up to 4-5 times a day and her eyesight seems to be worse, she's constantly squinting. She needs to wear her glasses to drive or to read and at work. 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 She's been working more than usual because of vacation and summer. History of occasional headaches, twice in the past she's had vomiting but it's pretty rare for her to get a headache and never that high last over 3 weeks like this current headache She has taken Excedrin used ice packs which help a bit heat which doesn't help and OTC medications without relief. Headache Pain Score (Numeric/FACES): 10 - Related Data Allergies Allergy/AdvReac Type Severity Reaction Status Date / Time Penicillins Allergy Rash Verified 03/17/18 21:04 Sulfa (Sulfonamide AdvReac Stomach Verified 03/17/18 21:04 Antibiotics) Upset Home Meds: Home Meds Furosemide 40 mg PO DAILY PRN 01/04/14 [History] traZODone HCl [Oleptro ER] 300 mg PO BEDTIME 01/04/14 [History] Zolpidem [Ambien] 15 mg PO BEDTIME PRN 12/05/16 [History] Magnesium Hydroxide [Milk of Magnesia] 30 ml PO DAILY PRN #2 ml 12/12/16 [Rx] Polyethylene Glycol 3350 [MiraLAX] 17 gm PO BID 12/29/16 [History] Acetaminophen [Tylenol] 650 mg PO Q6H 12/31/16 [History] Carisoprodol 350 mg PO TID 03/17/18 [History] Past Medical History - Past Health History Medical/Surgical History: Denies Medical/Surgical History HEENT History: Reports: None Cardiovascular History: Reports: Hypertension Respiratory History: Reports: Bronchitis, Recurrent Gastrointestinal History: Reports: Chronic Constipation, Gastritis, Hiatal Hernia Genitourinary History: Reports: Other (See Below) Other Genitourinary History: vaginitis [employer] History: Reports: Dysfunctional Uterine Bleeding, Endometriosis, , Spontaneous Musculoskeletal History: Reports: Back Pain, Chronic, Fibromyalgia Neurological History: Reports: Migraines, Seizure Psychiatric History: Reports: Anxiety, Bipolar, Depression Hematologic History: Reports: Anemia Oncologic (Cancer) History: Reports: Other (See Below) Other Oncologic History: vaginal canal, upper lip Dermatologic History: Reports: None - Infectious Disease History Infectious Disease History: Reports: Shingles - Past Surgical History Head Surgeries/Procedures: Reports: None HEENT Surgical History: Reports: Oral Surgery, Tonsillectomy, Other (See Below) Cardiovascular Surgical History: Reports: None GI Surgical History: Reports: Appendectomy, Colonoscopy, EGD, Dean Fundoplication Neurological Surgical History: Reports: Lumbar Spine, Other (See Below) Musculoskeletal Surgical History: Reports: Hip Replacement, Knee Replacement, Shoulder Surgery, Other (See Below) Dermatological Surgical History: Reports: Skin Biopsy Social & Family History - Family History Family Medical History: Noncontributory - Tobacco Use Smoking Status *Q: Current Every Day Smoker Years of Tobacco use: 40 Packs/Tins Daily: 0.2 - Caffeine Use Caffeine Use: Reports: Coffee Caffeine Use Comment: unable to obtain - Recreational Drug Use Recreational Drug Use: Yes Recreational Drug Type: Reports: Other (see below) Other Recreational Drug Type: medical marijuana - Living Situation & Occupation Occupation: Employed ED ROS GENERAL - Review of Systems Review Of Systems: See Below Constitutional: Reports: Malaise, Decreased Appetite, Weight Loss (Report 7 pounds in 2 weeks) HEENT: Reports: Vision Change, Other (Photophobia). Denies: Ear Pain, Eye Pain , Throat Pain Respiratory: Reports: No Symptoms Cardiovascular: Reports: No Symptoms GI/Abdominal: Reports: Nausea. Denies: Abdominal Pain (I), Vomiting Musculoskeletal: Reports: No Symptoms Skin: Reports: No Symptoms Neurological: Reports: Headache. Denies: Paresthesia, Seizure, Syncope, Trouble Speaking, Difficulty Walking Psychiatric: Reports: Anxiety Hematologic/Lymphatic: Reports: No Symptoms Immunologic: Reports: No Symptoms - Physical Exam Exam: See Below Exam Limited By: No Limitations General Appearance: Alert, Mild Distress, Other (Appears tired but otherwise well, no difficulty speaking or breathing, mild elevation of blood pressure) Eye Exam: Bilateral Eye: EOMI, Normal Inspection Ears: Normal External Exam, Normal Canal, Hearing Grossly Normal, Normal TMs Nose: Normal Inspection, Normal Mucosa Throat/Mouth: Normal Inspection, Normal Oropharynx, Normal Voice Head Exam: Atraumatic, Normocephalic Neck: Normal Inspection, Supple Respiratory/Chest: No Respiratory Distress, Lungs Clear, No Accessory Muscle Use Cardiovascular: Normal Peripheral Pulses, Regular Rate, Rhythm Neuro Exam (Abbreviated): Alert, Oriented, No Motor/Sensory Deficits, Other ( Normal gait, normal rapid alternating movements, normal [id number] but limited movement of right arm due to shoulder condition) Extremities: Normal Inspection, Other (Decreased range of motion right shoulder , several joint replacements) Psychiatric: Anxious, Tearful Skin Exam: Warm, Dry, Intact, Normal Color Course - Vital Signs Last Recorded V/S: Last Vital Signs Temp 36.2 C 03/17/18 21:04 Pulse 72 03/17/18 23:34 Resp 16 03/17/18 23:34 BP 151/93 H 03/17/18 23:34 Pulse Ox 98 03/17/18 23:34 - Orders/Labs/Meds Orders: Active Orders 24 hr Category Date Time Status Peripheral IV Care [RC] . DIRECTED Care 03/17/18 22:29 Active Head wo Cont [CT] Stat Exams 03/17/18 21:55 Taken Sodium Chloride 0.9% [Normal Saline] 1,000 ml Med 03/17/18 22:30 Active IV ASDIRECTED Sodium Chloride 0.9% [Saline Flush] Med 03/17/18 22:29 Active 10 ml FLUSH ASDIRECTED PRN Peripheral IV Insertion Adult [OM.PC] Routine Oth 03/17/18 22:29 Ordered Medication Orders Sodium Chloride (Normal Saline) 1,000 mls @ 500 mls/hr IV ASDIRECTED [facility] Last Admin: 03/17/18 23:23 Dose: 500 mls/hr Sodium Chloride (Saline Flush) 10 ml FLUSH ASDIRECTED PRN PRN Reason: Keep Vein Open Last Admin: 03/17/18 23:31 Dose: 10 ml Labs: Laboratory Tests 03/17/18 03/17/18 Range/Units 21:55 21:55 WBC 7.8 (4.5-11.0) K/uL RBC 3.88 (3.30-5.50) M/uL Hgb 12.3 (12.0-15.0) g/dL Hct 36.3 (36.0-48.0) % MCV 94 (80-98) fL MCH 32 H (27-31) pg MCHC 34 (32-36) % Plt Count 335 (150-400) K/uL Sodium 130 L (140-148) mmol/L Potassium 5.1 (3.6-5.2) mmol/L Chloride 96 L (100-108) mmol/L Carbon Dioxide 26 (21-32) mmol/L Anion Gap 13.1 (5.0-14.0) mmol/L BUN 12 (7-18) mg/dL Creatinine 0.9 (0.6-1.0) mg/dL Est Cr Clr Drug Dosing 58.84 mL/min Estimated GFR (MDRD) > 60 (>60) Glucose 110 H (74-106) mg/dL Calcium 9.6 D (8.5-10.1) mg/dL Meds: Medications Generic Name Dose Route Start Last Admin Trade Name Freq PRN Reason Stop Dose Admin Sodium Chloride 1,000 mls @ 500 mls/hr 03/17/18 22:30 03/17/18 23:23 Normal Saline IV 500 mls/hr ASDIRECTED [facility] Administration Sodium Chloride 10 ml 03/17/18 22:29 03/17/18 23:31 Saline Flush FLUSH 10 ml ASDIRECTED PRN Administration Keep Vein Open Discontinued Medications Generic Name Dose Route Start Last Admin Trade Name Freq PRN Reason Stop Dose Admin Hydromorphone HCl 0.5 mg 03/17/18 22:29 03/17/18 23:22 Dilaudid IVPUSH 03/17/18 22:30 0.5 mg ONETIME ONE Administration Prochlorperazine Edisylate 5 51 mls @ 150 mls/hr 03/17/18 22:29 03/17/18 23: 22 mg/ Sodium Chloride IV 03/17/18 22:49 150 mls/hr ONETIME ONE Administration Lorazepam 1 mg 03/17/18 22:29 03/17/18 23:22 Ativan IVPUSH 03/17/18 22:30 1 mg ONETIME ONE Administration - Re-Assessments/Exams Free Text/Narrative Re-Assessment/Exam: 03/17/18 22:26 58-year-old female with 23 day history of headache after epidural injection. Differential diagnosis includes atypimigraine post spinal headache, viral encephalitis among others, 03/17/18 22:31 CBC normal BMP shows low sodium [address] scan, normal saline, Compazine 5 mg, lorazepam 1 mg and hydromorphone 0.5 mg IV 03/18/18 00:03 Improvement in her headache CT scan negativShe will be taking a taxi home Follow-up primary care for further evaluation perhaps MRI or neurology referr Prescription f tramadol Departure - Departure Time of Disposition: 00:04 Disposition: Admitted As Inpatient 66 Condition: Fair Clinical Impression: Persistent headaches - Discharge Information Referrals: Benjamin Kelly Sr, MD [Primary Care Provider] - Forms: ED Department Discharge Additional Instructions: You have headache of uncertain cause, lasting over [address] scan of the head did not show any signs to explain your headaches, and no signs of any serious illness Follow-up with your primary physician or clinic is strongly recommended, to consider further evaluation such as perhaps an MRI or referral to neurology. - My Orders Last 24 Hours: My Active Orders 03/17/18 21:55 Head wo Cont [CT] Stat 03/17/18 22:29 Peripheral IV Care [RC] . DIRECTED Sodium Chloride 0.9% [Saline Flush] 10 ml FLUSH ASDIRECTED PRN Peripheral IV Insertion Adult [OM.PC] Routine 03/17/18 22:30 Sodium Chloride 0.9% [Normal Saline] 1,000 ml IV ASDIRECTED - Assessment/Plan Last 24 Hours: My Active Orders 03/17/18 21:55 Head wo Cont [CT] Stat 03/17/18 22:29 Peripheral IV Care [RC] . DIRECTED Sodium Chloride 0.9% [Saline Flush] 10 ml FLUSH ASDIRECTED PRN Peripheral IV Insertion Adult [OM.PC] Routine 03/17/18 22:30 Sodium Chloride 0.9% [Normal Saline] 1,000 ml IV ASDIRECTED
[2018-03-17] MEDS ORDERED: Prochlorperazine 5 MG in Sodium Chloride 0.9% 50 ML IV ONE (22:29)
[2018-03-17] MEDS ORDERED: HYDROmorphone 0.5 MG/0.5 ML Syringe IVPUSH ONE (22:29)
[2018-03-17] MEDS ORDERED: LORazepam 2 MG/ML SDV IVPUSH ONE (22:29)
[2018-03-17] MEDS ORDERED: Sodium Chloride 0.9% 10 ML Syringe FLUSH PRN (22:29)
[2018-03-17] MEDS ORDERED: Sodium Chloride 0.9% 1,000 ML IV SCH (22:30)
[2018-03-17 23:35] VITALS: BP 151/93
== END 2018-03-18 00:24 | disposition critical access hospital (66) ==
LOC: JP.ED 20:24
DX: R51 Headache (principal); M54.9 Dorsalgia, unspecified; G89.29 Other chronic pain; F31.9 Bipolar disorder, unspecified; F41.9 Anxiety disorder, unspecified; F17.210 Nicotine dependence, cigarettes, uncomplicated; Z88.0 Allergy status to penicillin; Z88.2 Allergy status to sulfonamides
CPT/HCPCS: 36415; 70450; 80048; 85027; 96361; 96374; 96375; 99285; J0780; J1170; J2060; J7030; J7050; 99283

== ENCOUNTER 2018-03-23 17:30 | Emergency (ER) | payer MEDICARE, MEDICAID | END 2018-03-23 19:03 | disposition left against medical advice (07) | LOC: JP.ED 17:30 | DX: Z53.21 Procedure and treatment not carried out due to patient leaving prior to being seen by health care provider (principal) ==

== ENCOUNTER 2018-04-29 23:17 | Emergency (ER) | payer MEDICARE, MEDICAID ==
--- NOTE | 2018-04-29 23:35 | EDM.PDOC ---
ED HPI GENERAL MEDICAL PROBLEM - General Stated Complaint: MEDICAL [facility]IA [facility] Time Seen by Provider: 04/29/18 23:25 Source of Information: Reports: Patient, EMS History Limitations: Reports: No Limitations - History of Present Illness INITIAL COMMENTS - FREE TEXT/NARRATIVE: 50-year-old female was out tonight drinking alcohol, using her medical marijuana and dancing when she started not feeling well. She went into the bar to get some water and as she was standing by the counter she told the hydrographic surveyor that she was not feeling well, they laid her on the floor and she had a "seizure ". This is a long recurring history for her. She thinks they are induced from severe pain. She is medically stable. Onset: Sudden Associated Symptoms: Reports: Other (Shoulder and knee pain). Denies: Fever/ Chills, Headaches - Related Data Allergies Allergy/AdvReac Type Severity Reaction Status Date / Time Penicillins Allergy Rash Verified 03/17/18 21:04 Sulfa (Sulfonamide AdvReac Stomach Verified 03/17/18 21:04 Antibiotics) Upset Home Meds: Home Meds traZODone HCl [Oleptro ER] 300 mg PO BEDTIME 01/04/14 [History] Zolpidem [Ambien] 15 mg PO BEDTIME PRN 12/05/16 [History] Magnesium Hydroxide [Milk of Magnesia] 30 ml PO DAILY PRN #2 ml 12/12/16 [Rx] Polyethylene Glycol 3350 [MiraLAX] 17 gm PO BID 12/29/16 [History] Acetaminophen [Tylenol] 650 mg PO Q6H 12/31/16 [History] Carisoprodol 350 mg PO TID 03/17/18 [History] Hydrocodone/Acetaminophen [Hydrocodon-Acetaminophen 5-325] 1 each PO Q4H PRN #6 tablet 03/18/18 [Rx] Lisinopril 10 mg PO DAILY 04/19/18 [History] Naproxen 500 mg PO BID 04/19/18 [History] Past Medical History - Past Health History Medical/Surgical History: Denies Medical/Surgical History HEENT History: Reports: None Cardiovascular History: Reports: Hypertension Respiratory History: Reports: Bronchitis, Recurrent Gastrointestinal History: Reports: Chronic Constipation, Gastritis, Hiatal Hernia Genitourinary History: Reports: Other (See Below) Other Genitourinary History: vaginitis 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: Dysfunctional Uterine Bleeding, Endometriosis, , Spontaneous Musculoskeletal History: Reports: Back Pain, Chronic, Fibromyalgia Neurological History: Reports: Migraines, Seizure Psychiatric History: Reports: Anxiety, Bipolar, Depression Hematologic History: Reports: Anemia Oncologic (Cancer) History: Reports: Other (See Below) Other Oncologic History: vaginal canal, upper lip Dermatologic History: Reports: None - Infectious Disease History Infectious Disease History: Reports: Chicken Pox - Past Surgical History Head Surgeries/Procedures: Reports: None HEENT Surgical History: Reports: Oral Surgery, Tonsillectomy, Other (See Below) Cardiovascular Surgical History: Reports: None GI Surgical History: Reports: Appendectomy, Colonoscopy, EGD, Dean Fundoplication Neurological Surgical History: Reports: Lumbar Spine, Other (See Below) Musculoskeletal Surgical History: Reports: Hip Replacement, Knee Replacement, Shoulder Surgery, Other (See Below) Dermatological Surgical History: Reports: Skin Biopsy Social & Family History - Family History Family Medical History: Noncontributory - Caffeine Use Caffeine Use: Reports: Coffee Caffeine Use Comment: unable to obtain - Living Situation & Occupation Occupation: Employed ED ROS GENERAL - Review of Systems Review Of Systems: See Below Constitutional: Reports: Decreased Appetite. Denies: Fever, Chills Respiratory: Denies: Shortness of Breath Cardiovascular: Denies: Chest Pain GI/Abdominal: Reports: Nausea. Denies: Abdominal Pain, Vomiting Skin: Denies: Bruising Neurological: Reports: Dizziness. Denies: Headache Psychiatric: Reports: Anxiety, Depression ED EXAM, GENERAL - Physical Exam Exam: See Below Exam Limited By: No Limitations General Appearance: Alert, No Apparent Distress Eye Exam: Bilateral Eye: EOMI Neck: Supple Respiratory/Chest: No Respiratory Distress, Lungs Clear Cardiovascular: Regular Rate, Rhythm. No: Tachycardia, Extra Beats GI/Abdominal: Soft, Non-Tender Neurological: Alert, Oriented, No Motor/Sensory Deficits Psychiatric: Normal Affect, Normal Mood Skin Exam: Warm, Dry Course - Vital Signs Last Recorded V/S: Last Vital Signs Temp 96.8 F 04/29/18 23:40 Pulse 60 04/29/18 23:40 Resp 12 04/29/18 23:40 BP 110/58 L 04/29/18 23:40 Pulse Ox 98 04/29/18 23:40 - Re-Assessments/Exams Free Text/Narrative Re-Assessment/Exam: 04/29/18 23:34 Reassured patient that she is medically stable and no further treatment needs to be added on to her long list of medications. Departure - Departure Time of Disposition: 02:35 Disposition: Home, Self-Care 01 Condition: Good Clinical Impression: Syncopal episodes Qualifiers: Syncope type: unspecified Qualified Code(s): R55 - Syncope and collapse - Discharge Information Instructions: Syncope, [id number] Referrals: PCP,None [Primary Care Provider] - Forms: ED Department Discharge Care Plan Goals: Continue your current medications and increase activity as tolerated.
[2018-04-30 02:36] VITALS: BP 110/58
== END 2018-04-30 00:20 | disposition home or self-care (01) ==
LOC: JP.ED 23:17
DX: R55 Syncope and collapse (principal); I10 Essential (primary) hypertension; F31.9 Bipolar disorder, unspecified; Z88.0 Allergy status to penicillin; Z88.2 Allergy status to sulfonamides; Z79.899 Other long term (current) drug therapy
CPT/HCPCS: 99284

== ENCOUNTER 2018-05-01 23:21 | Emergency (ER) | payer MEDICARE, MEDICAID ==
[2018-05-01 23:57] VITALS: BP 124/69
[2018-05-02] MEDS: Ondansetron 4 MG/2 ML SDV IVPUSH ONE (01:03)
[2018-05-02] MEDS: HYDROmorphone 1 MG/ML Syringe IVPUSH ONE ×2 (01:03→01:53)
[2018-05-02] MEDS: Sodium Chloride 0.9% 10 ML Syringe FLUSH PRN ×2 (01:04→02:04)
[2018-05-02] MEDS: Iopamidol 612 MG/ML 100 ML Bottle IV PRN (02:06)
--- NOTE | 2018-05-02 03:35 | EDM.PDOC ---
ED HPI GENERAL MEDICAL PROBLEM - General Chief Complaint: Abdominal Pain Stated Complaint: STOMACH PAIN Time Seen by Provider: 05/02/18 00:30 Source of Information: Reports: Patient History Limitations: Reports: Physical Impairment (Every time this woman moves slighltly she screams and says she's having sever back pain. Every time I touch her abdomen she screams. Very difficult exam.) - History of Present Illness INITIAL COMMENTS - FREE TEXT/NARRATIVE: Past 2 days complains of pain in left side of abdomen. Severe sharp stabbing. Diarrhea since February. Can't vomit. Passes gas alot. Had dry heaves today. Lost 15 # since February. Complains of severe pain all over. Nurse said she was her a couple days ago but doc refused to give anything for pain. Possibly drug seeking. left side abdominal pain Pain Score (Numeric/FACES): 10 - Related Data Allergies Allergy/AdvReac Type Severity Reaction Status Date / Time Penicillins Allergy Rash Verified 03/17/18 21:04 Sulfa (Sulfonamide AdvReac Stomach Verified 03/17/18 21:04 Antibiotics) Upset Home Meds: Home Meds traZODone HCl [Oleptro ER] 300 mg PO BEDTIME 01/04/14 [History] Zolpidem [Ambien] 15 mg PO BEDTIME PRN 12/05/16 [History] Magnesium Hydroxide [Milk of Magnesia] 30 ml PO DAILY PRN #2 ml 12/12/16 [Rx] Polyethylene Glycol 3350 [MiraLAX] 17 gm PO BID 12/29/16 [History] Acetaminophen [Tylenol] 650 mg PO Q6H 12/31/16 [History] Carisoprodol 350 mg PO TID 03/17/18 [History] Hydrocodone/Acetaminophen [Hydrocodon-Acetaminophen 5-325] 1 each PO Q4H PRN #6 tablet 03/18/18 [Rx] Lisinopril 10 mg PO DAILY 04/19/18 [History] Naproxen 500 mg PO BID 04/19/18 [History] Past Medical History - Past Health History Medical/Surgical History: Denies Medical/Surgical History HEENT History: Reports: Impaired Vision Cardiovascular History: Reports: Hypertension Respiratory History: Reports: Bronchitis, Recurrent Gastrointestinal History: Reports: Chronic Constipation, Gastritis, Hiatal Hernia, Irritable Bowel Syndrome, Other (See Below) Other Gastrointestinal History: ulcerative colitis Genitourinary History: Reports: Other (See Below) Other Genitourinary History: vaginitis 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: Dysfunctional Uterine Bleeding, Endometriosis, , Spontaneous , Therapeutic Musculoskeletal History: Reports: Back Pain, Chronic, Fracture, Fibromyalgia Neurological History: Reports: Migraines, Seizure Psychiatric History: Reports: ADHD, Anxiety, Bipolar, Depression, Other (See Below) Other Psychiatric History: borderline personality disorder Endocrine/Metabolic History: Reports: Other (See Below) Other Endocrine/Metabolic History: prediabetic Hematologic History: Reports: Anemia Oncologic (Cancer) History: Reports: Other (See Below) Other Oncologic History: vaginal canal, upper lip Dermatologic History: Reports: Other (See Below) Other Dermatologic History: left foot x2 bunions removed - Infectious Disease History Infectious Disease History: Reports: Chicken Pox, Shingles - Past Surgical History Head Surgeries/Procedures: Reports: None HEENT Surgical History: Reports: Oral Surgery, Tonsillectomy GI Surgical History: Reports: Appendectomy, Colonoscopy, EGD, Dean Fundoplication Female Surgical History: Reports: Hysterectomy, Salpingo-Oophorectomy Neurological Surgical History: Reports: Lumbar Spine, Spinal Fusion, Other (See Below) Other Neurological Surgeries/Procedures: tumor removed Musculoskeletal Surgical History: Reports: Hip Replacement, Knee Replacement, Shoulder Surgery, Other (See Below) Other Musculoskeletal Surgeries/Procedures:: Right arm fracture, pins placed. mesh placed in left thumb due to arthritis Dermatological Surgical History: Reports: Skin Biopsy Social & Family History - Family History Family Medical History: Noncontributory - Tobacco Use Smoking Status *Q: Current Every Day Smoker Years of Tobacco use: 43 Packs/Tins Daily: 1 - Caffeine Use Caffeine Use: Reports: Coffee Caffeine Use Comment: unable to obtain - Recreational Drug Use Recreational Drug Use: Yes Drug Use in Last 12 Months: No Recreational Drug Type: Reports: Cocaine, Marijuana/Hashish, Methamphetamine Recreational Drug Use Frequency: Not Used In Over 6 Months - Living Situation & Occupation Occupation: Employed ED ROS GENERAL - Review of Systems Review Of Systems: See Below Constitutional: Reports: Decreased Appetite, Weight Loss. Denies: Fever, Chills HEENT: Reports: No Symptoms Respiratory: Reports: No Symptoms Cardiovascular: Reports: No Symptoms Endocrine: Reports: No Symptoms GI/Abdominal: Reports: Abdominal Pain, Diarrhea, Flatus, Nausea. Denies: Black Stool, Bloody Stool, Constipation, Hematochezia, Melena : Reports: No Symptoms Musculoskeletal: Reports: Back Pain Skin: Reports: No Symptoms Neurological: Reports: No Symptoms ED EXAM, GI/ABD - Physical Exam Exam: See Below Exam Limited By: Physical Impairment (She screams every time I touch her abd or if she moves slightly.) General Appearance: Alert, WD/WN, Moderate Distress Eyes: Bilateral: Normal Appearance Throat/Mouth: Normal Oropharynx Neck: Normal Inspection Respiratory/Chest: Lungs Clear Cardiovascular: Regular Rate, Rhythm GI/Abdominal Exam: Normal Bowel Sounds, Other (Left side seems firm. Sever tenderness. Rebound tend.) Extremities: Normal Inspection Neurological: Alert, Oriented Psychiatric: Normal Affect Skin Exam: Warm, Dry Course - Vital Signs Last Recorded V/S: Last Vital Signs Temp 36.3 C 05/02/18 00:12 Pulse 82 05/02/18 00:12 Resp 18 05/02/18 00:12 BP 124/69 05/02/18 00:12 Pulse Ox 96 05/02/18 00:12 - Orders/Labs/Meds Orders: Active Orders 24 hr Category Date Time Status Abdomen Pelvis w Cont [CT] Stat Exams 05/02/18 00:40 Taken UA W/MICROSCOPIC [URIN] Urgent Lab 05/02/18 00:39 Ordered Saline Lock Insert [OM.PC] Urgent Oth 05/02/18 00:39 Ordered Labs: Laboratory Tests 05/02/18 05/02/18 05/02/18 Range/Units 00:39 00:54 00:54 WBC 7.4 (4.5-11.0) K/uL RBC 3.86 (3.30-5.50) M/uL Hgb 12.4 (12.0-15.0) g/dL Hct 36.1 (36.0-48.0) % MCV 94 (80-98) fL MCH 32 H (27-31) pg MCHC 34 (32-36) % Plt Count 257 (150-400) K/uL Neut % (Auto) 63 (36-66) % Lymph % (Auto) 29 (24-44) % [place] % (Auto) 7 H (2-6) % Eos % (Auto) 1 L (2-4) % Baso % (Auto) 0 (0-1) % Sodium (140-148) mmol/L Potassium (3.6-5.2) mmol/L Chloride (100-108) mmol/L Carbon Dioxide (21-32) mmol/L Anion Gap (5.0-14.0) mmol/L BUN (7-18) mg/dL Creatinine (0.6-1.0) mg/dL Est Cr Clr Drug Dosing mL/min Estimated GFR (MDRD) (>60) Glucose (74-106) mg/dL Calcium (8.5-10.1) mg/dL Total Bilirubin (0.2-1.0) mg/dL AST (15-37) U/L ALT (12-78) U/L Alkaline Phosphatase (46-116) U/L Total Protein (6.4-8.2) g/dL Albumin (3.4-5.0) g/dL Globulin (2.3-3.5) g/dL Albumin/Globulin Ratio (1.2-2.2) Amylase 24 L (25-115) U/L Lipase 61 L (73-393) U/L Urine Color Yellow Urine Appearance Clear Urine pH 5.0 (4.5-8.0) Ur Specific [place] 1.020 (1.008-1.030) Urine Protein Negative (NEGATIVE) mg/dL Urine Glucose (UA) Normal (NEGATIVE) mg/dL Urine Ketones Negative (NEGATIVE) mg/dL Urine Occult Blood Negative (NEGATIVE) Urine Nitrite Negative (NEGATIVE) Urine Bilirubin Small (NEGATIVE) Urine Urobilinogen Normal (NORMAL) mg/dL Ur Leukocyte Esterase Negative (NEGATIVE) Urine RBC 0-5 (0-5) Urine WBC 0-5 (0-5) Ur Epithelial Cells Few Amorphous Sediment Not seen Urine Bacteria Few Urine Mucus Not seen 05/02/18 Range/Units 00:54 WBC (4.5-11.0) K/uL RBC (3.30-5.50) M/uL Hgb (12.0-15.0) g/dL Hct (36.0-48.0) % MCV (80-98) fL MCH (27-31) pg MCHC (32-36) % Plt Count (150-400) K/uL Neut % (Auto) (36-66) % Lymph % (Auto) (24-44) % [place] % (Auto) (2-6) % Eos % (Auto) (2-4) % Baso % (Auto) (0-1) % Sodium 127 L (140-148) mmol/L Potassium 3.9 (3.6-5.2) mmol/L Chloride 91 L (100-108) mmol/L Carbon Dioxide 28 (21-32) mmol/L Anion Gap 11.9 (5.0-14.0) mmol/L BUN 15 (7-18) mg/dL Creatinine 0.8 (0.6-1.0) mg/dL Est Cr Clr Drug Dosing 66.19 mL/min Estimated GFR (MDRD) > 60 (>60) Glucose 109 H (74-106) mg/dL Calcium 9.0 (8.5-10.1) mg/dL Total Bilirubin 0.3 (0.2-1.0) mg/dL AST 33 (15-37) U/L ALT 28 (12-78) U/L Alkaline Phosphatase 82 (46-116) U/L Total Protein 7.1 (6.4-8.2) g/dL Albumin 3.5 (3.4-5.0) g/dL Globulin 3.6 H (2.3-3.5) g/dL Albumin/Globulin Ratio 1.0 L (1.2-2.2) Amylase (25-115) U/L Lipase (73-393) U/L Urine Color Urine Appearance Urine pH (4.5-8.0) Ur Specific [place] (1.008-1.030) Urine Protein (NEGATIVE) mg/dL Urine Glucose (UA) (NEGATIVE) mg/dL Urine Ketones (NEGATIVE) mg/dL Urine Occult Blood (NEGATIVE) Urine Nitrite (NEGATIVE) Urine Bilirubin (NEGATIVE) Urine Urobilinogen (NORMAL) mg/dL Ur Leukocyte Esterase (NEGATIVE) Urine RBC (0-5) Urine WBC (0-5) Ur Epithelial Cells Amorphous Sediment Urine Bacteria Urine Mucus Meds: Medications Discontinued Medications Generic Name Dose Route Start Last Admin Trade Name Freq PRN Reason Stop Dose Admin Hydromorphone HCl 1 mg 05/02/18 00:40 05/02/18 01:03 Dilaudid IVPUSH 05/02/18 00:41 1 mg ONETIME ONE Administration Hydromorphone HCl 1 mg 05/02/18 01:49 05/02/18 01:53 Dilaudid IVPUSH 05/02/18 01:50 1 mg ONETIME ONE Administration Sodium Chloride 70 mls @ 3.2 mls/sec 05/02/18 01:45 05/02/18 02:06 Normal Saline IV 3.2 mls/sec ASDIRECTED OLGA Administration Iopamidol 100 ml 05/02/18 01:31 05/02/18 02:06 Isovue-300 (61%) IV 05/03/18 01:32 100 ml . DIRECTED PRN Administration RADIOLOGY EXAM Magnesium Citrate 296 ml 05/02/18 03:35 05/02/18 03:44 Citrate Of Magnesia PO 05/02/18 03:36 296 ml ONETIME ONE Administration Ondansetron HCl 4 mg 05/02/18 00:40 05/02/18 01:03 Zofran IVPUSH 05/02/18 00:41 4 mg ONETIME ONE Administration Sodium Chloride 10 ml 05/02/18 00:40 05/02/18 01:04 Saline Flush FLUSH 10 ml ASDIRECTED PRN Administration Keep Vein Open Sodium Chloride 10 ml 05/02/18 01:31 05/02/18 02:04 Saline Flush FLUSH 10 ml ONETIME PRN Administration per radiology protocol - Radiology Interpretation Free Text/Narrative:: Abd CT was neg. I note many CT's and MRI's in this lady. Clearly something wrong with this. - Re-Assessments/Exams Free Text/Narrative Re-Assessment/Exam: 05/02/18 18:[address] findings. Maybe a little stool and gas but nothing more. I told her the number of CT's and MRI's is alarming. I explained that using a laxative (already using Miralax) or simethicone may help. Gave 1 bottle MG Citrate in ER. Otherwise I have nothing to offer her and she should see her doctor. In retrospect I think she is manipulating me whether intentionally or not. Departure - Departure Time of Disposition: 03:31 Disposition: Home, Self-Care 01 Condition: Fair Clinical Impression: Abdominal pain - Discharge Information Instructions: Abdominal Pain, Adult, [id number] Referrals: William Khan MD [Primary Care Provider] - Forms: ED Department Discharge Additional Instructions: Some of your pain may have been caused by some mild constipation as seen on the CT even though the radiologist felt the scan was normal. The magnesium citrate should cause your bowels to clear out in 12-24 hours. Be surer to drink several glasses of water. No driving for the next 12 hours since you were given a narcotic pain killer. - My Orders Last 24 Hours: My Active Orders 05/02/18 00:39 UA W/MICROSCOPIC [URIN] Urgent Saline Lock Insert [OM.PC] Urgent 05/02/18 00:40 Abdomen Pelvis w Cont [CT] Stat - Assessment/Plan Last 24 Hours: My Active Orders 05/02/18 00:39 UA W/MICROSCOPIC [URIN] Urgent Saline Lock Insert [OM.PC] Urgent 05/02/18 00:40 Abdomen Pelvis w Cont [CT] Stat
[2018-05-02] MEDS: Magnesium Citrate Solution 296 ML Bottle PO ONE (03:44)
== END 2018-05-02 03:55 | disposition home or self-care (01) ==
LOC: JP.ED 23:21
DX: R10.9 Unspecified abdominal pain (principal); I10 Essential (primary) hypertension; F17.210 Nicotine dependence, cigarettes, uncomplicated; Z88.0 Allergy status to penicillin; Z88.2 Allergy status to sulfonamides
CPT/HCPCS: 36415; 74177; 80053; 81001; 82150; 83690; 85025; 96374; 96375; 96376; 99284; A9270; J1170; J2405; J7030; J7050; Q9967

== ENCOUNTER 2018-05-17 17:58 | Emergency (ER) | payer MEDICARE, MEDICAID ==
[2018-05-17 18:35] VITALS: BP 178/95
--- NOTE | 2018-05-17 19:21 | EDM.PDOC ---
ED HPI GENERAL MEDICAL PROBLEM - General Chief Complaint: General Stated Complaint: hives pain Time Seen by Provider: 05/17/18 18:03 Source of Information: Reports: Patient - History of Present Illness INITIAL COMMENTS - FREE TEXT/NARRATIVE: This lady has chronic pain and is seeing a doc in [place] for pain. Lately she' s been taking lots of vitamins and compalains of hives to legs and back. She scratches her legs a lot. Can't take Benadryl as it makes her hyper. Upset about not getting shoulder surgery. Difficult to follow her history. Back Pain Score (Numeric/FACES): 10 - Related Data Allergies Allergy/AdvReac Type Severity Reaction Status Date / Time Penicillins Allergy Rash Verified 03/17/18 21:04 Sulfa (Sulfonamide AdvReac Stomach Verified 03/17/18 21:04 Antibiotics) Upset Home Meds: Home Meds traZODone HCl [Oleptro ER] 300 mg PO BEDTIME 01/04/14 [History] Zolpidem [Ambien] 15 mg PO BEDTIME PRN 12/05/16 [History] Magnesium Hydroxide [Milk of Magnesia] 30 ml PO DAILY PRN #2 ml 12/12/16 [Rx] Polyethylene Glycol 3350 [MiraLAX] 17 gm PO BID 12/29/16 [History] Carisoprodol 350 mg PO TID 03/17/18 [History] Lisinopril 10 mg PO DAILY 04/19/18 [History] LORazepam 0.5 mg PO ASDIRECTED PRN 05/17/18 [History] Pregabalin [Lyrica] 50 mg PO DAILY 05/17/18 [History] Past Medical History - Past Health History Medical/Surgical History: Denies Medical/Surgical History HEENT History: Reports: Impaired Vision Cardiovascular History: Reports: Hypertension Respiratory History: Reports: Bronchitis, Recurrent Gastrointestinal History: Reports: Chronic Constipation, Gastritis, Hiatal Hernia, Irritable Bowel Syndrome, Other (See Below) Other Gastrointestinal History: ulcerative colitis Genitourinary History: Reports: Other (See Below) Other Genitourinary History: vaginitis 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: Dysfunctional Uterine Bleeding, Endometriosis, , Spontaneous , Therapeutic Musculoskeletal History: Reports: Back Pain, Chronic, Fracture, Fibromyalgia Neurological History: Reports: Migraines, Seizure Psychiatric History: Reports: ADHD, Anxiety, Bipolar, Depression, Other (See Below) Other Psychiatric History: borderline personality disorder Endocrine/Metabolic History: Reports: Other (See Below) Other Endocrine/Metabolic History: prediabetic Hematologic History: Reports: Anemia Oncologic (Cancer) History: Reports: Other (See Below) Other Oncologic History: vaginal canal, upper lip Dermatologic History: Reports: Other (See Below) Other Dermatologic History: left foot x2 bunions removed - Infectious Disease History Infectious Disease History: Reports: Chicken Pox, Shingles - Past Surgical History Head Surgeries/Procedures: Reports: None HEENT Surgical History: Reports: Oral Surgery, Tonsillectomy Female Surgical History: Reports: Hysterectomy, Salpingo-Oophorectomy Neurological Surgical History: Reports: Lumbar Spine, Spinal Fusion, Other (See Below) Other Neurological Surgeries/Procedures: tumor removed Other Musculoskeletal Surgeries/Procedures:: Right arm fracture, pins placed. mesh placed in left thumb due to arthritis Social & Family History - Family History Family Medical History: Noncontributory - Tobacco Use Smoking Status *Q: Heavy Tobacco Smoker Years of Tobacco use: 45 Packs/Tins Daily: 2 - Caffeine Use Caffeine Use: Reports: Coffee Caffeine Use Comment: unable to obtain - Alcohol Use Days Per Week of Alcohol Use: 7 Number of Drinks Per Day: 2 Total Drinks Per Week: 14 - Recreational Drug Use Recreational Drug Use: Yes Recreational Drug Type: Reports: Marijuana/Hashish - Living Situation & Occupation Occupation: Employed ED ROS GENERAL - Review of Systems Review Of Systems: ROS reveals no pertinent complaints other than HPI. ED EXAM, GENERAL - Physical Exam Exam: See Below Exam Limited By: No Limitations General Appearance: Alert, Anxious, Mild Distress Eye Exam: Bilateral Eye: Normal Inspection Extremities: Other (Lots of excoriations to calves. Difficult to tell what is rash and what is scratching. Not urticaria though. Not insect bites. uncertain if this is drug rash.) Course - Vital Signs Last Recorded V/S: Last Vital Signs Temp 36.6 C 05/17/18 18:34 Pulse 87 05/17/18 18:34 Resp 18 05/17/18 18:34 BP 178/95 H 05/17/18 18:34 Pulse Ox 96 05/17/18 18:34 Departure - Departure Time of Disposition: 19:20 Disposition: Home, Self-Care 01 Condition: Fair Clinical Impression: Rash and nonspecific skin eruption - Discharge Information Referrals: PCP,None [Primary Care Provider] - Additional Instructions: Use triamcinolone 0.1% cream 3 times daily to affected areas. You may need help applying this to your back. See your doctor soon.
== END 2018-05-17 19:37 | disposition home or self-care (01) ==
LOC: JP.ED 17:58
DX: R21 Rash and other nonspecific skin eruption (principal); I10 Essential (primary) hypertension; F17.210 Nicotine dependence, cigarettes, uncomplicated; Z79.899 Other long term (current) drug therapy; Z88.0 Allergy status to penicillin; Z88.2 Allergy status to sulfonamides
CPT/HCPCS: 99283

== ENCOUNTER 2018-05-31 07:53 | Day surgery (SDC) | payer MEDICARE, MEDICAID ==
[2018-05-31] MEDS ORDERED: Dextrose 5%-Lactated Ringers 1,000 ML IV SCH (09:00)
[2018-05-31] MEDS ORDERED: LORazepam 2 MG/ML SDV IVPUSH ONE (09:45)
[2018-05-31] MEDS ORDERED: Propofol 200 MG/20 ML SDV ONE ×2 (09:57→11:30)
[2018-05-31] MEDS ORDERED: Midazolam 1 MG/ML 2 ML SDV ONE ×2 (09:57→11:30)
[2018-05-31] MEDS ORDERED: fentaNYL 100 MCG/2 ML SDV ONE ×2 (09:57→11:30)
[2018-05-31] MEDS ORDERED: Glycopyrrolate 0.2 MG/ML 2 ML SDV IVPUSH ONE ×2 (10:00→11:30)
[2018-05-31 12:45] VITALS: BP 108/56
--- NOTE | 2018-06-07 15:30 | OR ---
DATE OF PROCEDURE: 05/31/2018 PREOPERATIVE DIAGNOSIS: Upper and mid abdominal pain. POSTOPERATIVE DIAGNOSIS: Upper and mid abdominal pain associated with mild antral gastritis. OPERATIVE PROCEDURES: Esophagogastroduodenoscopy with antral biopsies for CLOtest. ANESTHESIA: IV sedation. INDICATIONS FOR PROCEDURE: This is a 58-year-old female presenting with some ongoing upper abdominal pain. She complains of being distended as well, although stating that she has been losing weight. The patient is status post previous Dean fundoplication. Plan is to proceed with an upper GI endoscopy with biopsies and/or dilation as indicated. Potential risks including bleeding and perforation were discussed, and the patient wishes to proceed. DETAILS OF PROCEDURE: The patient was taken to the operating room and placed in a left lateral decubitus position. IV sedation was administered, after which the upper GI endoscope was passed orally through the length of the esophagus, into the stomach with retroflexion view of the fundus, thereafter through the pyloric channel and into the proximal duodenum. Findings included normal hypopharynx, larynx, upper esophageal sphincter, and esophageal body. At the EG junction, the patient had an intact Dean fundoplication and no discernible inflammation or stricturing present. Within the stomach, there was no retained food or bile and there was some very mild antral gastritis without erosions or ulcers. The pyloric channel and duodenum at the junction of third and fourth portions were unremarkable. Biopsies were then obtained from the antrum and sent for CLOtest for H. pylori. Minimal bleeding from the biopsy sites was seen and the procedure then concluded. The patient was taken to recovery room in satisfactory condition. Overall, the patient's gastritis findings certainly did not adequately explain her symptoms. She has already had a CT scan which was otherwise unremarkable and given this, we will obtain a CCK-stimulated HIDA scan. This will be done on Thursday and we will see her after that scan has been completed. In the meantime, she has been given a prescription for Zofran 4 mg ODT and she is instructed taking this 15-20 minutes before meals to see if that helps with her ability to maintain adequate oral intake. Raimundo Cooley MD /[id number]
== END 2018-05-31 12:55 | disposition home or self-care (01) ==
LOC: JP.SDS 07:53
PROVIDERS: ATTEND Surgery
DX: K29.50 Unspecified chronic gastritis without bleeding (principal); I10 Essential (primary) hypertension; F17.210 Nicotine dependence, cigarettes, uncomplicated; Z88.0 Allergy status to penicillin; Z98.890 Other specified postprocedural states
CPT/HCPCS: 43239; 87081; J2060; J2250; J2704; J3010; J3490; J7042

== ENCOUNTER 2018-06-01 21:57 | Emergency (ER) | payer MEDICARE, MEDICAID ==
[2018-06-01 22:12] VITALS: BP 111/50
--- NOTE | 2018-06-01 22:54 | EDM.PDOC ---
ED HPI GENERAL MEDICAL PROBLEM - General Chief Complaint: Abdominal Pain Stated Complaint: ABDOMINAL PAIN VIA [facility]TH Time Seen by Provider: 06/01/18 22:20 Source of Information: Reports: Patient, RN Notes Reviewed History Limitations: Reports: No Limitations - History of Present Illness INITIAL COMMENTS - FREE TEXT/NARRATIVE: 58-year-old female presents to the emergency department today via EMS services for abdominal pain, she recently underwent EGD 2 days prior had been doing well postprocedure and is scheduled for a HIDA scan this morning. She states she ate a regular meal this evening suddenly developed onset of abdominal pain she also is complaining of abdominal distention that has been going on for a couple of months.. Review of records show that she is been in the emergency department multiple times for complaints of abdominal pain review of essential records show that she has chronic abdominal pain and has violated the narcotic pain contract no narcotics will be provided by the Center provider. She currently is seeing Dr. Vargas in [place] with the pain center. I also reviewed the [place] prescription drug monitoring program and was noticed that she has seen multiple providers both primary care and specialty receiving different controlled substances. abdminal pain Pain Score (Numeric/FACES): 10 - Related Data Allergies Allergy/AdvReac Type Severity Reaction Status Date / Time Penicillins Allergy Rash Verified 06/01/18 22:03 Sulfa (Sulfonamide AdvReac Stomach Verified 06/01/18 22:03 Antibiotics) Upset Home Meds: Home Meds traZODone HCl [Oleptro ER] 150 mg PO BEDTIME PRN 01/04/14 [History] Zolpidem [Ambien] 10 mg PO BEDTIME PRN 12/05/16 [History] Polyethylene Glycol 3350 [MiraLAX] 17 gm PO BID PRN 12/29/16 [History] Carisoprodol 350 mg PO TID 03/17/18 [History] LORazepam 0.5 mg PO TID 05/17/18 [History] Pregabalin [Lyrica] 100 mg PO DAILY 05/17/18 [History] Ammonium Lactate [Lac-Hydrin 12% Crm] 1 applic TOP BID 05/31/18 [History] Medical Marijauna 1 drop PO ASDIRECTED PRN 05/31/18 [History] Nicotine [Nicotrol] 1 squirt IH ASDIRECTED 05/31/18 [History] Past Medical History HEENT History: Reports: Impaired Vision Cardiovascular History: Reports: Hypertension Respiratory History: Reports: Bronchitis, Recurrent Gastrointestinal History: Reports: Chronic Constipation, Gastritis, Hiatal Hernia, Irritable Bowel Syndrome, Other (See Below) Other Gastrointestinal History: ulcerative colitis Genitourinary History: Reports: Other (See Below) Other Genitourinary History: vaginitis LOSS 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: Reports: Dysfunctional Uterine Bleeding, Endometriosis, , Spontaneous , Therapeutic Musculoskeletal History: Reports: Back Pain, Chronic, Fracture, Fibromyalgia Other Musculoskeletal History: needs rotator replacement on right shoulder Neurological History: Reports: Migraines, Seizure Psychiatric History: Reports: ADHD, Anxiety, Bipolar, Depression, Panic Attack, Other (See Below) Other Psychiatric History: borderline personality disorder Endocrine/Metabolic History: Reports: Other (See Below) Other Endocrine/Metabolic History: prediabetic Hematologic History: Reports: Anemia Oncologic (Cancer) History: Reports: Other (See Below) Other Oncologic History: vaginal canal, upper lip Dermatologic History: Reports: Benign Melanoma Other Dermatologic History: left foot x2 bunions removed - Infectious Disease History Infectious Disease History: Reports: Chicken Pox, Shingles - Past Surgical History HEENT Surgical History: Reports: Oral Surgery, Tonsillectomy GI Surgical History: Reports: Appendectomy, Colostomy, EGD, Dean Fundoplication Female Surgical History: Reports: Hysterectomy, Salpingo-Oophorectomy Neurological Surgical History: Reports: Lumbar Spine, Spinal Fusion, Other (See Below) Other Neurological Surgeries/Procedures: tumor removed Musculoskeletal Surgical History: Reports: Shoulder Surgery, Other (See Below) Other Musculoskeletal Surgeries/Procedures:: Right arm fracture, pins placed. mesh placed in left thumb due to arthritis. left foot bunions removed Social & Family History - Family History Family Medical History: Noncontributory - Tobacco Use Smoking Status *Q: Current Every Day Smoker Years of Tobacco use: 45 Packs/Tins Daily: 1 - Caffeine Use Caffeine Use: Reports: Coffee, Tea Caffeine Use Comment: unable to obtain - Recreational Drug Use Recreational Drug Use: No - Living Situation & Occupation Occupation: Employed ED ROS GENERAL - Review of Systems Review Of Systems: See Below Constitutional: Reports: No Symptoms Respiratory: Reports: No Symptoms Cardiovascular: Reports: No Symptoms GI/Abdominal: Reports: Abdominal Pain, Flatus. Denies: Nausea, Vomiting ED EXAM, GI/ABD - Physical Exam Exam: See Below Exam Limited By: No Limitations General Appearance: Alert, WD/WN, No Apparent Distress Respiratory/Chest: No Respiratory Distress, Lungs Clear, Normal Breath Sounds, No Accessory Muscle Use Cardiovascular: Regular Rate, Rhythm, No Murmur GI/Abdominal Exam: Normal Bowel Sounds, Soft, Distended, Tender (Generalized tenderness to palpation). No: Guarding, Rigid Course - Vital Signs Text/Narrative:: after the exam I recommended a couple treatment options that did not include narcotics for pain medication. She did provide push back and felt these treatments would not provide any relief. When I questioned her about narcotic use she became very upset and stated she was leaving did not want to be treated like this called me "ass hole" at this time I offered to call the patient advocate and offered her the opportunity to file a complaint. Of which she was agreeable. However while I was away coordinating care with the patient advocate she left the emergency department without meeting with the patient advocate. Last Recorded V/S: Last Vital Signs Temp 98.0 F 06/01/18 22:11 Pulse 87 06/01/18 22:11 Resp 20 06/01/18 22:11 BP 111/50 L 06/01/18 22:11 Pulse Ox 97 06/01/18 22:11 Departure - Departure Time of Disposition: 22:54 Disposition: Eloped 07 Condition: Undetermined Clinical Impression: Abdominal pain - Discharge Information Referrals: PCP,None [Primary Care Provider] -
== END 2018-06-01 22:30 | disposition left against medical advice (07) ==
LOC: JP.ED 21:57
DX: R10.84 Generalized abdominal pain (principal); I10 Essential (primary) hypertension; F17.210 Nicotine dependence, cigarettes, uncomplicated; Z88.0 Allergy status to penicillin; Z88.2 Allergy status to sulfonamides; Z79.899 Other long term (current) drug therapy; R92.8 Other abnormal and inconclusive findings on diagnostic imaging of breast
CPT/HCPCS: 76642-26-RT; 76642-RT; 77065-26-RT; 77065-RT; 99282; 99284

== ENCOUNTER 2018-06-10 07:01 | Day surgery (SDC) | payer MEDICARE, MEDICAID ==
[2018-06-10] MEDS ORDERED: Midazolam 1 MG/ML 2 ML SDV ONE (07:24)
[2018-06-10] MEDS ORDERED: Propofol 200 MG/20 ML SDV ONE ×2 (07:24→08:24)
[2018-06-10] MEDS ORDERED: fentaNYL 100 MCG/2 ML SDV ONE (07:24)
[2018-06-10] MEDS ORDERED: Sodium Chloride 0.9% 1,000 ML IV SCH (07:45)
[2018-06-10 09:58] VITALS: BP 136/85
--- NOTE | 2018-06-10 11:01 | PROC ---
DATE OF PROCEDURE: 06/10/2018 INDICATION: Abiola is a 58-year-old female who has had significant diffuse abdominal pain for a number of years. She has lost 25 pounds in the last few months. Her abdominal pain is significant. She recently had an esophageal gastroduodenoscopy by Dr. Raimundo Cooley and nothing was found. She comes in for a colonoscopy. The risks and benefits were explained for the procedure and was taken to the OR. PROCEDURE IN DETAIL: Anesthesia was given by nurse building code administrator. During the procedure, we used 2 mg of Versed, 2 mL of fentanyl, and 400 mg of propofol. The Olympus 180-AL scope was used and was placed into the rectum after examination of the rectum with a gloved finger, which was unremarkable. The tube was advanced and did get to the cecum. There was a significant amount of retained fecal matter at the cecum and in the transverse colon. Other than that, we got a good observation of the mucosa. At 25 cm, we noted a small area of erythema. This was biopsied. The remainder of the colon, sigmoid, and rectum were unremarkable. The tube was removed. The patient tolerated the procedure well. PREOPERATIVE DIAGNOSIS: Diffuse abdominal pain. POSTOPERATIVE DIAGNOSIS: Erythema, 25 cm. Otherwise, the colon was unremarkable, even though there was retained fecal matter. I feel that this does not answer her problem of abdominal pain. Benjamin Kelly MD /[id number]
== END 2018-06-10 10:00 | disposition home or self-care (01) ==
LOC: JP.SDS 07:01
PROVIDERS: ATTEND Internal Medicine
DX: K52.9 Noninfective gastroenteritis and colitis, unspecified (principal); I10 Essential (primary) hypertension; F17.200 Nicotine dependence, unspecified, uncomplicated; G47.33 Obstructive sleep apnea (adult) (pediatric); K21.9 Gastro-esophageal reflux disease without esophagitis
CPT/HCPCS: 45380; 88305; J2250; J2704; J3010

== ENCOUNTER 2021-04-07 17:02 | Emergency (ER) | payer MEDICARE, MEDICAID ==
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
[2021-04-07] MEDS ORDERED: Ketorolac 30 MG/ML SDV IM ONE (17:38)
[2021-04-07 18:42] VITALS: BP 140/75; PULSE 58
== END 2021-04-07 19:09 ==
LOC: JP.ED 17:02
DX: R10.11 Right upper quadrant pain (principal); I10 Essential (primary) hypertension; Z88.0 Allergy status to penicillin; Z88.2 Allergy status to sulfonamides
CPT/HCPCS: 36415; 80053; 81001; 83690; 85025; 96372; 99284; J1885

== ENCOUNTER 2022-03-01 08:29 | Emergency (ER) | payer MEDICARE, MEDICAID ==
[2022-03-01 08:49] VITALS: BP 128/71; PULSE 80
[2022-03-01] MEDS ORDERED: HYDROmorphone 1 MG/ML Syringe IM ONE (09:02)
== END 2022-03-01 10:37 | disposition home or self-care (01) ==
LOC: JP.ED 08:29
DX: S93.601A Unspecified sprain of right foot, initial encounter (principal); I10 Essential (primary) hypertension; Z88.0 Allergy status to penicillin; Z88.2 Allergy status to sulfonamides; Z79.899 Other long term (current) drug therapy; Z90.49 Acquired absence of other specified parts of digestive tract; Z90.710 Acquired absence of both cervix and uterus; W08.XXXA Fall from other furniture, initial encounter
CPT/HCPCS: 73562; 73610; 73630; 96372; 99282; 99283; J1170

== ENCOUNTER 2022-04-02 12:38 | Emergency (ER) | payer MEDICARE, MEDICAID ==
[2022-04-02] MEDS: Ondansetron 4 MG Tab.DIS PO ONE (14:28)
[2022-04-02 15:23] VITALS: BP 154/82; PULSE 78
== END 2022-04-02 15:41 | disposition home or self-care (01) ==
LOC: JP.ED 12:38
DX: S06.0X0A Concussion without loss of consciousness, initial encounter (principal); I10 Essential (primary) hypertension; F17.210 Nicotine dependence, cigarettes, uncomplicated; Z88.0 Allergy status to penicillin; W22.09XA Striking against other stationary object, initial encounter
CPT/HCPCS: 70450; 99284; Q0162

== ENCOUNTER 2022-04-25 06:59 | Day surgery (SDC) | payer MEDICARE, MEDICAID ==
[2022-04-25] MEDS ORDERED: Lactated Ringers 1,000 ML IV SCH (07:30)
[2022-04-25] MEDS ORDERED: fentaNYL 100 MCG/2 ML SDV ONE (07:32)
[2022-04-25] MEDS ORDERED: Propofol 200 MG/20 ML SDV ONE (07:32)
[2022-04-25] MEDS ORDERED: Midazolam 1 MG/ML 2 ML SDV ONE (07:32)
[2022-04-25 10:05] VITALS: BP 144/66; PULSE 60
== END 2022-04-25 10:00 | disposition home or self-care (01) ==
LOC: JP.SDS 06:59
PROVIDERS: ATTEND Family Medicine
DX: K21.00 Gastro-esophageal reflux disease with esophagitis, without bleeding (principal); K31.A0 Gastric intestinal metaplasia, unspecified; I10 Essential (primary) hypertension; Z88.0 Allergy status to penicillin; Z88.2 Allergy status to sulfonamides; Z79.810 Long term (current) use of selective estrogen receptor modulators (SERMs)
CPT/HCPCS: 43239; J2250; J2704; J3010; J7120

== ENCOUNTER 2023-03-14 15:18 | Emergency (ER) | payer MEDICARE, MEDICAID ==
[2023-03-14 15:35] VITALS: BP 142/63; PULSE 93
== END 2023-03-14 16:31 | disposition home or self-care (01) ==
LOC: JP.ED 15:18
DX: Z48.01 Encounter for change or removal of surgical wound dressing (principal); I10 Essential (primary) hypertension; Z88.0 Allergy status to penicillin; Z88.2 Allergy status to sulfonamides; Z79.899 Other long term (current) drug therapy; Z72.0 Tobacco use
CPT/HCPCS: 99282

== ENCOUNTER 2023-05-21 08:21 | Day surgery (SDC) | payer MEDICARE, MEDICAID ==
[~2023-05-21 08:21] MED LIST: Bupivacaine 0.5% 30 ML SDV ONE; Dexamethasone 4 MG/ML SDV ONE; Glycopyrrolate 0.2 MG/ML 5 ML MDV ONE; Neostigmine Methylsulfate 1 MG/ML 5 ML Syringe ONE; Ondansetron 4 MG/2 ML SDV ONE; Propofol 200 MG/20 ML SDV ONE; Rocuronium 50 MG/5 ML Vial ONE; Succinylcholine 200 MG/10 ML MDV ONE; fentaNYL 250 MCG/5 ML SDV ONE
[2023-05-21] MEDS ORDERED: ceFAZolin 2 GM in Premix Bag 1 BAG IV ONE (08:30)
[2023-05-21] MEDS ORDERED: metroNIDAZOLE/Normal Saline 500 MG in Premix Bag 1 BAG IV ONE (08:30)
[2023-05-21] MEDS ORDERED: Sodium Chloride 0.9% 1,000 ML IV SCH (08:30)
[2023-05-21] MEDS ORDERED: Indocyanine Green 25 MG SDV IV ONE (08:45)
[2023-05-21 09:07] LABS: HEMATOCRIT 35.7 % (34.3-46.0); HEMOGLOBIN 12.1 g/dL (11.2-15.5); MEAN CORPUSCULAR HGB CONC 33.9 g/dL (31.6-35.5); MEAN CORPUSCULAR VOLUME 97.3 fL (81.4-99.0); RED BLOOD CELL COUNT 3.67 M/uL (3.77-5.24); WHITE BLOOD CELL COUNT,WBC 9.7 K/uL (3.2-11.0)
[2023-05-21 09:28] LABS: A/G RATIO 1.1 (1.2-2.2); ALANINE AMINOTRANSFERASE,ALT 19 U/L (12-78); ALBUMIN 3.2 g/dL (3.4-5.0); ALKALINE PHOSPHATASE 75 U/L (46-116); ASPARTATE AMNIOTRANSFERASE,AST 19 U/L (15-37); BILIRUBIN TOTAL 0.3 mg/dL (0.2-1.0); BLOOD UREA NITROGEN,BUN 14 mg/dL (7-18); CALCIUM 8.5 mg/dL (8.5-10.1); CARBON DIOXIDE,CO2 28 mmol/L (21-32); CHLORIDE,CL 100 mmol/L (100-108); CREATININE 0.8 mg/dL (0.6-1.0); EST CRCL DRUG DOSING (CG) 59.54 mL/min; ESTIMATED GFR 83 mL/min (>60); GLUCOSE RANDOM 118 mg/dL (74-106); POTASSIUM,K 4.6 mmol/L (3.6-5.2); SODIUM,NA 135 mmol/L (140-148)
[2023-05-21] MEDS ORDERED: Albuterol/Ipratropium 3.0-0.5 MG/3 ML Neb Soln NEB ONE (09:30)
[2023-05-21 09:34] LABS: ANION GAP 11.6 mmol/L (5.0-14.0)
[2023-05-21] MEDS ORDERED: fentaNYL 100 MCG/2 ML SDV ONE ×2 (10:17→10:25)
[2023-05-21] MEDS ORDERED: Labetalol 20 MG/4 ML Syringe ONE (10:38)
[2023-05-21] MEDS ORDERED: Lactated Ringers 1,000 ML ONE (10:58)
[2023-05-21] MEDS ORDERED: hydrOXYzine HCL 100 MG/2 ML SDV IM ONE (11:22)
[2023-05-21] MEDS ORDERED: fentaNYL 50 MCG/ML SDV IVPUSH ONE (11:22)
[2023-05-21] MEDS ORDERED: Morphine 2 MG/ML SYRINGE IVPUSH PRN (12:02)
[2023-05-21] MEDS ORDERED: Acetaminophen/HYDROcodone 325-5 MG Tab PO PRN (12:04)
[2023-05-21 13:53] VITALS: BP 118/57; PULSE 59
== END 2023-05-21 13:50 | disposition home or self-care (01) ==
LOC: JP.SDS 08:21
PROVIDERS: ATTEND Surgery
DX: K81.1 Chronic cholecystitis (principal); M17.9 Osteoarthritis of knee, unspecified; F33.1 Major depressive disorder, recurrent, moderate; G43.909 Migraine, unspecified, not intractable, without status migrainosus; M81.0 Age-related osteoporosis without current pathological fracture; F41.9 Anxiety disorder, unspecified; F43.10 Post-traumatic stress disorder, unspecified; F99 Mental disorder, not otherwise specified; F90.9 Attention-deficit hyperactivity disorder, unspecified type; G47.33 Obstructive sleep apnea (adult) (pediatric); M79.7 Fibromyalgia; J44.9 Chronic obstructive pulmonary disease, unspecified; K21.9 Gastro-esophageal reflux disease without esophagitis; E03.9 Hypothyroidism, unspecified; E78.5 Hyperlipidemia, unspecified; F17.210 Nicotine dependence, cigarettes, uncomplicated; Z79.1 Long term (current) use of non-steroidal anti-inflammatories (NSAID); Z79.899 Other long term (current) drug therapy; Z88.0 Allergy status to penicillin; Z88.2 Allergy status to sulfonamides
CPT/HCPCS: 36415; 47562; 80053; 85027; 94640; A9270; J0171; J0690; J1100; J2270; J2405; J2704; J2710; J2795; J3010; J3410; J3490; J7030; J7120; 88304; J0330; J7620

== ENCOUNTER 2025-02-04 13:50 | Emergency (ER) | payer MEDICARE, MEDICAID ==
[2025-02-04 14:06] LABS: BASOPHILS ABSOLUTE AUTO 0.03 K/uL (0.00-0.10); BASOPHILS PERCENT AUTO 0.4 % (0.1-1.3); HEMATOCRIT 40.3 % (34.3-46.0); HEMOGLOBIN 14.7 g/dL (11.2-15.5); IMMATURE GRAN ABSOLUTE AUTO 0.03 K/uL (0.00-0.23); IMMATURE GRAN PERCENT AUTO 0.4 % (0.0-0.7); LYMPHOCYTES ABSOLUTE AUTO 1.48 K/uL (0.8-3.3); LYMPHOCYTES PERCENT AUTO 17.3 % (11.4-47.7); MEAN CORPUSCULAR HEMOGLOBIN 33.6 pg (31.6-35.5); MEAN CORPUSCULAR HGB CONC 36.5 g/dL (31.6-35.5); MEAN CORPUSCULAR VOLUME 92.2 fL (81.4-99.0); MONOCYTES ABSOLUTE AUTO 0.53 K/uL (0.20-0.90); MONOCYTES PERCENT AUTO 6.2 % (3.3-12.6); NEUTROPHILS PERCENT AUTO 75.7 % (40.0-78.1); PLATELET COUNT,PLT 196 K/uL (130-375); RED BLOOD CELL COUNT 4.37 M/uL (3.77-5.24); WHITE BLOOD CELL COUNT,WBC 8.6 K/uL (3.2-11.0)
[2025-02-04 14:28] LABS: A/G RATIO 1.2 (1.2-2.2); ALANINE AMINOTRANSFERASE,ALT 31 U/L (12-78); ALBUMIN 3.7 g/dL (3.4-5.0); ALKALINE PHOSPHATASE 151 U/L (46-116); ASPARTATE AMNIOTRANSFERASE,AST 34 U/L (15-37); BILIRUBIN TOTAL 0.5 mg/dL (0.2-1.0); BLOOD UREA NITROGEN,BUN 6 mg/dL (7-18); CALCIUM 9.6 mg/dL (8.5-10.1); CARBON DIOXIDE,CO2 23 mmol/L (21-32); CHLORIDE,CL 96 mmol/L (100-108); CREATININE 0.8 mg/dL (0.6-1.0); ESTIMATED GFR 82 mL/min (>60); GLUCOSE RANDOM 122 mg/dL (74-106); PROTEIN TOTAL,TP 6.8 g/dL (6.4-8.2); SODIUM,NA 134 mmol/L (140-148)
[2025-02-04] MEDS: Sodium Chloride 0.9% 1,000 ML IV ONE (14:56)
[2025-02-04] MEDS: Potassium Chloride 10 MEQ in Premix Bag 1 BAG IV ONE (14:57)
[2025-02-04 15:24] LABS: AMPHETAMINES SCREEN, URINE NEGATIVE (NEGATIVE); BARBITURATE SCREEN,URINE NEGATIVE (NEGATIVE); BENZODIAZEPINES SCREEN,URINE NEGATIVE (NEGATIVE); METHADONE SCREEN, URINE NEGATIVE (NEGATIVE); METHAMPHETAMINES SCREEN, URINE NEGATIVE (NEGATIVE); OXYCODONE SCREEN,URINE NEGATIVE (NEGATIVE); PROPOXYPHENE SCREEN,URINE NEGATIVE (NEGATIVE); THC SCREEN,URINE 50 NG/ML NEGATIVE (NEGATIVE)
[2025-02-04] MEDS: Naloxone 0.4 MG/ML SDV IVPUSH ONE (15:48)
[2025-02-04] MEDS: Potassium Chloride 20 MEQ Tab.ER PO ONE (22:10)
[2025-02-05 09:21] VITALS: BP 138/64; PULSE 72
== END 2025-02-05 13:07 | disposition home or self-care (01) ==
LOC: JP.ED 13:50
DX: R41.82 Altered mental status, unspecified (principal); F32.A Depression, unspecified; E87.6 Hypokalemia; I10 Essential (primary) hypertension; J44.9 Chronic obstructive pulmonary disease, unspecified; K21.9 Gastro-esophageal reflux disease without esophagitis; Z88.0 Allergy status to penicillin; Z88.2 Allergy status to sulfonamides; Z79.899 Other long term (current) drug therapy; Z86.16 Personal history of COVID-19
CPT/HCPCS: 36415; 70450; 80053; 80143; 80179; 80305; 80307; 82140; 83605; 85025; 96361; 96365; 96375; 99285; A9270; J2310; J3480; J7030; U0002